=== PATIENT | female | born 1980 | race Caucasian/White ===

== ENCOUNTER 2022-10-20 08:55 | Outpatient (OUT) | payer OTHER, SELFPAY ==
--- NOTE | 2022-10-20 09:30 | XR_ITS ---
The [address] [address] Patient Name: SUREKHA EASLEY MRN: [id number] date: 1980 Sex: F Assigned Patient Location: [facility] Current Patient Location: [facility] Accession/Order Number: [id number] Exam Date: 10/20/2022 09:40 Report Date: 10/20/2022 11:05 At the request of: NAGA SCOTT Procedure: XR chest 2V EXAM: XR chest 2V HISTORY: E CIGARETTE USE COMPARISON: None. TECHNIQUE: PA and lateral views of the chest. FINDINGS: The cardiomediastinal silhouette is normal. No focal consolidation is identified. There is no pneumothorax. No pleural effusion is noted. The osseous structures are intact. XR/XR chest 2V IMPRESSION: No acute cardiopulmonary process. Electronically authenticated by: TASH CONNORS Date: 10/20/2022 11:05
--- NOTE | 2022-10-20 09:39 | PM.PRESUREVA ---
History of Present Illness History of Present Illness Chief complaint: cervical dysplasia Narrative: Patient presents for preadmission testing. Please see HPI from Dr. Kraft dated 10/04/2022. Review of Systems ROS Narrative REVIEW OF SYSTEMS: Negative except as stated in HPI, ten or more systems reviewed. Constitutional: No fever , chills, weakness ENT: No sore throat or epistaxis Cardiovascular: No edema, chest pain, palpitations, or activity intolerance Respiratory: No shortness of breath, cough, or wheezing Musculoskeletal: No joint pain or swelling Gastrointestinal: No abdominal pain, constipation, diarrhea, or vomiting Genitourinary: No dysuria or hematuria Neurological: No numbness, tingling, weakness, or headache Psychiatric: No mood changes PFSH PFSH Medical History (Updated 10/20/22 @ 09:28 by Milli Carrillo NP) Surgical History (Updated 10/20/22 @ 09:28 by Milli Carrillo NP) Family History (Updated 10/20/22 @ 09:28 by Milli Carrillo NP) Other Family history of COPD (chronic obstructive pulmonary disease) Family history of cervical cancer Family history of heart disease Family history of renal failure Social History (Updated 10/20/22 @ 09:21 by Milli Carrillo NP) Within the past year, how often did you have a drink containing alcohol: 2-4 times a month Do you use any of these nicotine containing products: vaping products Non-prescribed substance use: cannabis (any form) Previous occupational history: [employer] Highest level of school completed/degree received: high school graduate Meds Home Medications and Allergies Home Medications Medication Instructions Recorded Confirmed Type ibuprofen 400 mg tablet 800 mg PO TID-QID PRN pain 10/20/22 10/20/22 History levonorgestrel 20.4 mcg/24 hrs (8 intrauterine 10/20/22 History yrs) 52 mg intrauterine device (Liletta) promethazine 12.5 mg tablet 12.5 mg PO TID PRN nausea and 10/20/22 10/20/22 History vomiting sumatriptan succinate 50 mg tablet See Rx Instructions PO .COMPLEX 10/20/22 10/20/22 History (Imitrex) Allergies Allergy/AdvReac Type Severity Reaction Status Date / Time bee venom protein (honey bee) Allergy swelling Verified 10/20/22 09:18 latex Allergy Hives Verified 10/20/22 09:18 strawberry Allergy Rash Verified 10/20/22 09:18 Exam Narrative Exam Narrative: Constitutional: Awake, alert, comfortable, well-appearing, nontoxic, interactive, vital signs as charted Head: Normocephalic, atraumatic Neck: Supple, normal appearance, normal range of motion, no meningeal signs, no lymphadenopathy Respiratory: No respiratory distress, breath sounds clear Cardiovascular: Regular rate and rhythm, strong and regular heart tones Abdomen: Nontender, normal bowel sounds, soft, no CVA tenderness Musculoskeletal: Normal gait, no swelling or edema Skin: No rashes or induration, no lesions, only visible skin inspected Neuro: No neurological deficits, normal sensation Psychiatric: Oriented ?3, normal affect Assessment and Plan Assessment and Plan (1) Dysplasia of cervix: Plan LEEP Scheduled with Dr. Kraft 11/02/2022.
== END 2022-10-20 08:56 | disposition home or self-care (01) ==
LOC: PST 09:00
PROVIDERS: PCP Nurse Practitioner Family; Visit Provider Obstetrics & Gynecology
DX: Z01.818 Encounter for other preprocedural examination (principal); Z01.810 Encounter for preprocedural cardiovascular examination; N87.9 Dysplasia of cervix uteri, unspecified; F17.290 Nicotine dependence, other tobacco product, uncomplicated
CPT/HCPCS: 71046; G0463

== ENCOUNTER 2022-11-02 11:10 | Day surgery (SDC) | payer OTHER, SELFPAY ==
[2022-10-20 09:23] VITALS: BP 146/80; PULSE 89; RESP 20; TEMP 36.8; O2SAT 96; BMI 51.0
[2022-11-02] VITALS (12 sets, daily range): BP systolic 119–160; BP diastolic 79–104; PULSE 74–95; RESP 11–25; TEMP 36.5–37.1; O2SAT 93–100; BMI 50.7
[2022-11-02 11:38] LABS: HCG Quantitative 2 mIU/mL
[2022-11-02 11:40] LABS: Basophils Percent Auto 0.5 % (0.2-2.0); Eosinophils Absolute Auto 0.4 10^3/uL (0.0-0.7); Eosinophils Percent Auto 4.2 % (0.9-7.0); Hematocrit 40.8 % (36.0-48.0); Hemoglobin 13.7 g/dL (12.0-16.0); Immature Granulocytes Abs Auto 0.02 10^3/uL (0.00-0.03); Immature Granulocytes Pct Auto 0.2 % (0.0-0.5); Lymphocytes Absolute Auto 2.4 10^3/uL (1.2-3.8); Lymphocytes Percent Auto 27.6 % (20.5-60.0); Mean Corpuscular HGB Conc 33.6 g/dL (29.9-35.2); Mean Corpuscular Hemoglobin 28.9 pg (26.7-34.0); Mean Corpuscular Volume 86.1 fL (81.0-99.0); Mean Platelet Volume 8.7 fL (9.5-13.5); Monocytes Absolute Auto 0.7 10^3/uL (0.3-0.8); Monocytes Percent Auto 8.2 % (1.7-12.0); Neutrophils Absolute Auto 5.2 10^3/uL (1.4-6.5); Neutrophils Percent Auto 59.3 % (43.0-75.0); Platelet Count 474 10^3/uL (150-450); Red Blood Count 4.74 10^6/uL (4.20-5.40); Red Cell Distribution Width 13.3 % (11.0-15.0); White Blood Count 8.8 10^3/uL (4.0-11.0)
[2022-11-02] MEDS: LACTATED RINGER'S SOLUTION 1,000 ML 50 ML IV (11:41)
[2022-11-02] MEDS: FERRIC SUBSULFATE 8 ML SOLUTION TOPICAL (13:10)
[2022-11-02] MEDS: IODINE/POTASSIUM IODIDE 8 ML SOLUTION TOPICAL (13:11)
--- NOTE | 2022-11-02 13:28 | P.ON_ITS ---
Brief Operative Note Date of procedure: 11/02/22 Pre-op diagnosis: cervical dysplasia Post-op diagnosis: same Procedure: NAME OF PROCEDURE: [leep ] PROCEDURE: Patient was taken back to the Operating Room where she was given general ane sthesia without difficulty. She was then placed in the dorsal lithotomy position. She was then prepped and draped in the normal sterile fashion. A weighted speculum was placed into the patient's vagina. The anterior lip of the cervix was identified and grasped with a single-tooth tenaculum. The patient's cervix was then copiously irrigated using vinegar.? Then, a Lugol Solution was also placed onto the patient's cervix which demonstrated increased uptake of the Lugol solution at the [6? ] o?clock and [?10 ] o?clock positions.? At that time, the LEEP portion of the procedure was performed, including both the [?6 ] o?clock and [10 ] o?clock positions. The ectocervix was sent out to Pathology. The patient's cervix was then coagulated using suction cautery. Excellent hemostasis was assured.? Monsel Solution was then placed onto the patient's cervix to help maintain adequate hemostasis. All instruments were removed from the patient's vagina. The anterior lip of the cervix demonstrated excellent hemostasis.? The patient tolerated the procedure well. Sponge, lap, and needle counts were correct x 2. The patient was taken to Recovery Room in stable condition. Anesthesia: SYDNEYA Surgeon: Khanh Kraft Estimated blood loss (mL): 20 Pathology: other (ectocervical tissue) Condition: stable Disposition: PACU
--- NOTE | 2022-11-02 13:43 | PC.NURSE ---
Katey pad is clean , no drainage.
== END 2022-11-02 14:30 | disposition home or self-care (01) ==
PROVIDERS: PCP Nurse Practitioner Family; Visit Provider Obstetrics & Gynecology
PROC: (CPT 57522; principal; 2022-11-02 12:30)
DX: N87.9 Dysplasia of cervix uteri, unspecified (principal); N72 Inflammatory disease of cervix uteri; N88.0 Leukoplakia of cervix uteri; F17.290 Nicotine dependence, other tobacco product, uncomplicated; E66.01 Morbid (severe) obesity due to excess calories; Z68.43 Body mass index [BMI] 50.0-59.9, adult
CPT/HCPCS: 57522; 36415; 84702; 85025; 88307; J2704

== ENCOUNTER 2023-03-29 21:24 | Outpatient (REF) | payer OTHER, SELFPAY ==
[2023-04-05 14:10] LABS: Age Gdln ACOG Testing Note (.); HPV Aptima Negative (Negative); IGP, Aptima HPV, rfx 16/18,45 Note (.)
== END 2023-03-29 21:25 | disposition home or self-care (01) ==
LOC: LAB 21:24
PROVIDERS: PCP Nurse Practitioner Family; Visit Provider Obstetrics & Gynecology
DX: Z01.419 Encounter for gynecological examination (general) (routine) without abnormal findings (principal)
CPT/HCPCS: G0145

== ENCOUNTER 2023-10-03 19:44 | Outpatient (REF) | payer OTHER, SELFPAY ==
--- OUTSIDE RECORDS SUMMARY | 2023-10-03 19:50 | XMS_ITS | CCD ---
Author Organization [facility] Care Team Providers Care Medical Office Asst Name Role Phone Betty Huffman Unavailable [phone] Betty Huffman Primary Care Unavailable NAGA SCOTT Attending Unavailable Allergies Allergy Classification Reported Allergen(s) Allergy Type Date of Onset Reaction(s) Facility (1 source) Pollen; Translations: [Pollen] Propensity to adverse reactions (disorder) [facility] Repository Medications Current Medications Medication Drug Class(es) Dates Sig (Normalized) Sig (Original) acetaminophen 325 mg oral tablet (1 source) take 2 tablets by mouth every twenty-four hours Tylenol 325 MG 2 tablet as needed Orally once a day Active [id number] actuat albuterol 0.09 mg/actuat metered dose inhaler (2 sources) beta2-Adrenergic Agonist take 1 puff(s) by inhalation every four hours as needed Albuterol Sulfate HFA 108 (90 Base) MCG/ACT 1 puff as needed Inhalation every 4 hrs Active benzonatate 200 mg oral capsule (2 sources) Non-narcotic Antitussive Start: 02-01-2022 take 1 capsule by mouth three times daily as needed Benzonatate 200 MG 1 capsule Orally Three times a day as needed for 10 day(s) Jan, Active take 1 capsule by mouth every ei ght hours Tessalon Perles 100 MG 1 capsule as needed Orally Three times a day Active cyclobenzaprine hydrochloride 10 mg oral tablet (7 sources) Muscle Relaxant Start: 10-03-2023 take 10 mg by mouth three times daily Cyclobenzaprine Active 10 MG PO Three times daily 120 90 October 03, 2023 12:00am Start: 07-15-2019 take 0.5-1 tablets b y mouth three times daily as needed for muscle spasms Cyclobenzaprine HCl 10 MG 1/2 to 1tab Orally tid prn muscle spasm or strain for 10 days PRN Jul, Active doxycycline monohydrate 100 mg oral tablet (1 source) Tetracycline-class Drug Start: 02-01-2022 take 1 tablet by mouth every twelve hours Doxycycline Monohydrate 100 MG 1 tablet Orally Twice a day for 10 day(s) Jan, Active fexofenadine (2 sources) Histamine-1 Receptor Antagonist Brittnee Active Levonorgestrel (6 sources) Progestin, Progestin-containing Intrauterine Device Liletta Active Mirena Active methylPREDNISolone 4 mg oral tablet (2 sources) Corticosteroid Start: 02-01-2022 methylPREDNISo lone 4 MG as directed Orally daily for 6 days Jan, Active Start: 09-28-2020 methylPREDNISo lone 4 MG as directed Orally daily for 6 days Sep, Not-Taking promethazine hydrochloride 25 mg oral tablet (8 sources) Phenothiazine Start: 09-28-2023 take 25 mg by mouth every twelve hours Promethazine Active 25 MG PO Every 12 hours September 28, 2023 12:00am Start: 02-03-2021 take 1 tablet by christian th every twelve hours Promethazine HCl 25 MG 1 tablet as needed Orally every 12 hrs for 30 day(s) Jan, Active Start: 01-11-2018 Phenergan 25mg 25mg as directed by mouth bid Jan, Active rimegepant 75 mg disintegrating oral tablet (2 sources) Start: 09-28-2023 Rimegepant (Nu rtec Odt) 75 mg tablet,disintegrating Active 75 MG PO Every 48 hours September 28, 2023 12:00am Start: 02-13-2023 Nurtec 75 MG 1 tablet on the tongue and allow to dissolve Orally for 30 days Feb, Active Completed/Discontinued Medications Medication Drug Class(es) Dates Sig (Normalized) Sig (Original) ibuprofen 800 mg oral tablet (1 source) Nonsteroidal Anti-inflammatory Drug Start: 07-15-2019 take 1 tablet by mouth three times daily at mealtime as needed Ibuprofen 800 MG 1 tablet with food or milk as needed Orally Three times a day Jul, Not-Taking Ketorolac (5 sources) Nonsteroidal Anti-inflammatory Drug, Cyclooxygenase Inhibitor Start: 10-02-2019 Toradol per 15 mg Sep, 30 mg SUMAtriptan 50 mg oral tablet (7 sources) Serotonin-1b and Serotonin-1d Receptor Agonist Start: 09-28-2023 End: 10-03-2023 Sumatriptan Succinate Discontinued 50 MG PO EVERY 2-4 HOURS September 28, 2023 12:00am October 03, 2023 10:38am SUMAtriptan Succ inate 50 MG TAKE ONE TABLET BY MOUTH NEEDED REPEAT IN 2 HOURS NEEDED DAILY FOR 30 DAYS for 30 day(s) Active Problems Active Problems Problem Classification Problem Date Documented Da te Episodic/Chronic Chronic obstructive pulmonary disease and bronchiectasis (1 source) Bronchitis, not specified as acute or chronic Episodic Essential hypertension (9 sources) Essential hypertension; Translations: [Essential (primary) hypertension] Onset: 02-03-2021 Resolved: 02-03-2021 Chronic Headache; including migraine (9 sources) Migraine with aura; Translations: [Migraine with aura, not intractable, without status migrainosus] Onset: 02-03-2021 Resolved: 02-03-2021 Chronic Other nervous system disorders (6 sources) H/O: migraine; Translations: [Personal history of other diseases of the nervous system and sense organs] Episodic Other upper respiratory infections (1 source) Acute maxillary sinusitis, unspecified Episodic Spondylosis; intervertebral disc disorders; other back problems (10 sources) Acute back pain with sciatica; Translations: [Lumbago with sciatica, left side] Episodic Past or Other Problems Problem Classification Problem Date Documented Da te Episodic/Chronic Other non-traumatic joint disorders (1 source) Pain in left knee Onset: 09-23-2021 Resolved: 09-23-2021 Episodic Results Test Name Value Interpretation Reference Range Facility Consent Formson 02-07-2023 Consent Forms [id number] #[id number] Normal [facility] CMP Standardon 02-01-2023 eGFR Non AA >60 Invalid Interpretation Code [facility] Comment on above: Performed By: #### 2 [id number], [id number], 1648397, 3059116, 6295786, [id number], 4995398 #### [facility] (DEFAULT) [address] [place] [address] eGFR AA >60 Invalid Interpretation Code [facility] Comment on above: Performed By: #### 2 [id number], [id number], 2714104, 4352795, 0440548, [id number], 0105897 #### [facility] (DEFAULT) [address] [place] [address] Albumin [Mass/Vol] 4.0 g/dL Normal 3.5-5.0 [facility] Comment on above: Performed By: #### 2 044853, [id number], 5800812, 5812573, 6641131, 6331285661, 1698639 #### [facility] (DEFAULT) [address] [place] [address] Albumin/Globulin [Mass ratio] 1.2 {ratio} Low 1.4-2.6 [facility] Comment on above: Performed By: #### 2 302829, [id number], 1964032, 3872236, 1682599, [id number], 7650704 #### [facility] (DEFAULT) [address] [place] [address] 62548 Alk Phos 58 IU/L Normal 32-91 [facility] Comment on above: Performed By: #### 2 692160, [id number], 0271689, 6366184, 0769982, 2790407296, 7753912 #### [facility] (DEFAULT) [address] [place] [address] 32761 ALT [Catalytic activity/Vol] 51.0 U/L Normal 14.0-54.0 [facility] Comment on above: Performed By: #### 2 787426, [id number], 0642707, 0482148, 2465558, [id number], 1336286 #### [facility] (DEFAULT) [address] [place] [address] 70999 Anion gap [Moles/Vol] 9.6 mmol/L Normal 5.0-19.0 [facility] Comment on above: Performed By: #### 2 307369, [id number], 5611591, 5149015, 8133954, [id number], 5459852 #### [facility] (DEFAULT) [address] [place] [address] 59741 AST [Catalytic activity/Vol] 27 U/L Normal 15-41 [facility] Comment on above: Performed By: #### 2 136551, [id number], 2947096, 5029546, 7173652, 6874669010, 5033602 #### [facility] (DEFAULT) [address] [place] [address] 89617 Bili Total 0.5 mg/dL Normal 0.3-1.2 [facility] Comment on above: Performed By: #### 2 479703, [id number], 8493503, 3966289, 8827065, 8584415152, 3233831 #### [facility] (DEFAULT) [address] [place] [address] 83039 Calcium [Mass/Vol] 8.6 mg/dL Low 8.9-10.3 [facility] Comment on above: Performed By: #### 2 139765, [id number], 0140541, 9623740, 0880347, 9919710896, 1836221 #### [facility] (DEFAULT) [address] [place] [address] 75833 Chloride [Moles/Vol] 102 mmol/L Normal 101-111 [facility] Comment on above: Performed By: #### 2 300882, [id number], 5781912, 7534514, 4988482, 7344942363, 7191953 #### [facility] (DEFAULT) [address] [place] [address] 93859 CO2 [Moles/Vol] 28 mmol/L Normal 21-32 [facility] Comment on above: Performed By: #### 2 985315, [id number], 4528327, 1546084, 6011281, 1074995277, 1286201 #### [facility] (DEFAULT) [address] [place] [address] 90176 Creatinine [Mass/Vol] 0.57 mg/dL Low 0.60-1.30 [facility] Comment on above: Performed By: #### 2 809266, 7375168889, 5785032, 1266992, 7506592, 7073803972, 3353139 #### [facility] (DEFAULT) [address] [place] [address] 60717 Globulin (S) [Mass/Vol] 3.2 g/dL Normal 1.5-4.3 [facility] Comment on above: Performed By: #### 2 578806, 5190615471, 5802557, 4445018, 6707773, 3194261865, 5731543 #### [facility] (DEFAULT) [address] [place] [address] 44460 Glucose [Mass/Vol] 87.0 mg/dL Normal 74.0-118.0 [facility] Comment on above: Performed By: #### 2 231406, 1363521698, 5744456, 1255457, 6364798, 0547054445, 1630881 #### [facility] (DEFAULT) [address] [place] [address] 40086 Osmolality 271 mOsm/L Invalid Interpretation Code [facility] Comment on above: Performed By: #### 2 255623, [id number], 0941796, 6126204, 6446443, 7627791613, 6896055 #### [facility] (DEFAULT) [address] [place] [address] 42578 Potassium [Moles/Vol] 3.6 mmol/L Normal 3.6-5.1 [facility] Comment on above: Performed By: #### 2 108593, 9024223073, 1342404, 2105989, 5141829, 6564653035, 6547710 #### [facility] (DEFAULT) [address] [place] [address] 60300 Protein [Mass/Vol] 7.2 g/dL Normal 6.5-8.1 [facility] Comment on above: Performed By: #### 2 602447, [id number], 9826171, 9314140, 1780601, 6971406862, 4255556 #### [facility] (DEFAULT) [address] [place] [address] 15946 Sodium [Moles/Vol] 136.0 mmol/L Normal 136.0-144.0 [facility] Comment on above: Performed By: #### 2 543084, 9830056433, 5855161, 4561505, 2494747, 1398381880, 2157165 #### [facility] (DEFAULT) [address] [place] [address] 28581 Urea nitrogen [Mass/Vol] 11 mg/dL Normal 8-26 [facility] Comment on above: Performed By: #### 2 805338, 4797962797, 5021719, 7702238, 2682846, 8176194777, 0396330 #### [facility] (DEFAULT) [address] [place] [address] 10775 Urea nitrogen/Creatini ne [Mass ratio] 19.2 mg/mg High 4.6-16.2 [facility] Comment on above: Performed By: #### 2 126292, 3688551525, 4635515, 3308016, 6779739, 0060194849, 0482900 #### [facility] (DEFAULT) [address] [place] [address] 72318 GGTon 02-01-2023 Gamma glutamyl transferase [Catalytic activity/Vol] 39.0 U/L Normal 7.0-50.0 [facility] Comment on above: Performed By: #### 2 724500, 2858131596, 9419424, 9498481, 8665009, 8398317361, 4374963 #### [facility] (DEFAULT) [address] [place] [address] 46154 Iron Levelon 02-01-2023 Iron [Mass/Vol] 75.0 ug/dL Normal 28.0-170.0 [facility] Comment on above: Performed By: #### 2 825063, [id number], 9243402, 4058408, 6115165, 9773919242, 0620522 #### [facility] (DEFAULT) [address] [place] [address] 16534 LDHon 02-01-2023 LDH 149.0 IU/L Normal 98.0-192.0 [facility] Comment on above: Performed By: #### 2 048137, [id number], 1283491, 5982211, 6658827, 7158303891, 5361790 #### [facility] (DEFAULT) [address] [place] [address] 45094 Lipid Panel Standardon 02-01 Cholesterol [Mass/Vol] 152.0 mg/dL Normal 66.0-200.0 [facility] Comment on above: Performed By: #### 2 005904, [id number], 8452360, 8797147, 3064256, 3125999261, 4730852 #### [facility] (DEFAULT) [address] [place] [address] 40950 Cholesterol in HDL [Mass/Vol] 46 mg/dL Normal 40-71 [facility] Comment on above: Performed By: #### 2 609257, 7782810363, 5911585, 3969994, 9024598, 2956995078, 8720850 #### [facility] (DEFAULT) [address] [place] [address] 31556 Cholesterol in LDL [Mass/Vol] 92 mg/dL Normal 1-100 [facility] Comment on above: Performed By: #### 2 285992, 9621712378, 2916726, 5732652, 2592678, 5182176309, 3027404 #### [facility] (DEFAULT) [address] [place] [address] 73005 Cholesterol.total /Cholesterol in HDL [Mass ratio] 3.2 {ratio} Normal 0.0-4.5 [facility] Comment on above: Performed By: #### 2 888267, 7010559925, 9870607, 2268347, 5294491, 6362786868, 8942812 #### [facility] (DEFAULT) [address] [place] [address] 26215 Triglyceride [Mass/Vol] 70.0 mg/dL Normal 0.0-150.0 [facility] Comment on above: Performed By: #### 2 927617, [id number], 3843561, 5883842, 1103250, 2959458929, 1502320 #### [facility] (DEFAULT) [address] [place] [address] 52408 VLDL. 14 mg/dL Normal 5-40 [facility] Comment on above: Performed By: #### 2 784350, 6177091250, 7627497, 0866902, 3012225, 2676183260, 9544838 #### [facility] (DEFAULT) [address] [place] [address] 88818 Phoson 02-01-2023 Phosphate [Mass/Vol] 3.8 mg/dL Normal 2.5-4.6 [facility] Comment on above: Performed By: #### 2 095219, [id number], 6561387, 8884580, 9755096, 4960157772, 4572860 #### [facility] (DEFAULT) [address] [place] [address] 35015 Uric Acidon 02-01-2023 Urate [Mass/Vol] 5.0 mg/dL Normal 2.6-8.0 [facility] Comment on above: Performed By: #### 2 964260, [id number], 2483613, 3158459, 8014310, 3285092605, 9079143 #### [facility] (DEFAULT) [address] [place] [address] 25424 SCREENING MAMMOGRAM W/FUAD, BILATERAL*on 02-14-2022 SCREENING MAMMOGRAM W/FUAD, BILATERAL* COMPARISON: Initial baseline examination. TECHNIQUE: 2D and 3D Tomosynthesis of the right and left breasts was performed. FINDINGS: Breast composition demonstrates almost entirely fat. No suspicious microcalcifications, dominant mass lesions, or distortion is present. IMPRESSION: BI-RADS 1- Negative Mammogram Board Certified Radiologist. Accredited by the ACR and FDA. MAMMOGRAPHY IS VERY IMPORTANT TO YOUR HEALTH. THE CURRENT [employer] AND [employer] GUIDELINES RECOMMENDS ANNUAL MAMMOGRAPHY BEGINNING AT AGE 40 THIS FACILITY USES A REMINDER SYSTEM TO ENSURE ALL PATIENTS RECEIVE REMINDER NOTIFICATIONS AT THE APPROPRIATE TIME BASED ON THE RECOMMENDATIONS OF THIS EXAM. Report reported and signed by Cedric North on 02/15/2022 0805 Normal [facility] Vital Signs Date Time Vital Sign Value Performing Clinician Facility 10-03-2023 10:31-0400 Body height 163.83 cm [facility] 10-03-2023 10:31-0400 Body mass index (BMI) [Ratio] 51.2 kg/m2 [facility] 10-03-2023 10:31-0400 Body weight 137.43 kg [facility] 10-03-2023 10:31-0400 Diastolic blood pressure 88 mm[Hg] [facility] 10-03-2023 10:31-0400 Heart rate 75 /min [facility] 10-03-2023 10:31-0400 SaO2% (BldA) [Mass fraction] 99 % [facility] 10-03-2023 10:31-0400 Systolic blood pressure 132 mm[Hg] [facility] 02-13-2023 11:00-0500 Body height 163.83 cm Betty Huffman Other [facility] Other 02-13-2023 11:00-0500 Body mass index (BMI) [Ratio] 50.53 kg/m2 Betty Huffman Other [facility] Other 02-13-2023 11:00-0500 Body weight 135.63 kg Betty Huffman Other [facility] Other 02-13-2023 11:00-0500 Diastolic blood pressure 88 mm[Hg] Betty Huffman Other [facility] Other 02-13-2023 11:00-0500 SaO2% (BldA) [Mass fraction] 99 % Betty Huffman Other [facility] Other 02-13-2023 11:00-0500 Systolic blood pressure 134 mm[Hg] Betty Huffman Other [facility] Other 02-01-2022 14:30-0400 Body height Betty Huffman Other [facility] Other 02-01-2022 14:30-0400 Body mass index (BMI) [Ratio] 51.2 kg/m2 Betty Lukedaynasilas Other [facility] Other 02-01-2022 14:30-0400 Body weight 137.44 kg Betty Cassidyacher Other [facility] Other 02-01-2022 14:30-0400 Diastolic blood pressure 100 mm[Hg] Betty Hinesr Other [facility] Other 02-01-2022 14:30-0400 SaO2% (BldA) [Mass fraction] 98 % Betty Lukedaynaalanajamey Other [facility] Other 02-01-2022 14:30-0400 Systolic blood pressure 142 mm[Hg] Betty Cassidyacher Other [facility] Other 01-26-2022 14:30-0400 Body height Betty Hinesr Other [facility] Other 01-26-2022 14:30-0400 Body mass index (BMI) [Ratio] 51.2 kg/m2 Betty Khanhacher Other [facility] Other 01-26-2022 14:30-0400 Body weight 137.44 kg Betty Lukedaynaacher Other [facility] Other 01-26-2022 14:30-0400 Diastolic blood pressure 98 mm[Hg] Betty Cassidyacher Other [facility] Other 01-26-2022 14:30-0400 SaO2% (BldA) [Mass fraction] 96 % Betty Lukedaynaacher Other [facility] Other 01-26-2022 14:30-0400 Systolic blood pressure 164 mm[Hg] Betty uLkerbacher Other [facility] Other 09-23-2021 11:00-0400 Body height Betty Cassidyacher Other [facility] Other 09-23-2021 11:00-0400 Body mass index (BMI) [Ratio] 50.19 kg/m2 Betty Cassidyacher Other [facility] Other 09-23-2021 11:00-0400 Body weight 134.72 kg Betty Lukedaynaacher Other [facility] Other 09-23-2021 11:00-0400 Diastolic blood pressure 86 mm[Hg] Betty Lukerbacher Other [facility] Other 09-23-2021 11:00-0400 SaO2% (BldA) [Mass fraction] 97 % Betty Khanhacher Other [facility] Other 09-23-2021 11:00-0400 Systolic blood pressure 126 mm[Hg] Betty Cassidyacher Other [facility] Other 02-03-2021 12:00-0400 Body height Betty Cassidyacher Other [facility] Other 02-03-2021 12:00-0400 Body mass index (BMI) [Ratio] 48.67 kg/m2 Betty Rohrbacher Other [facility] Other 02-03-2021 12:00-0400 Body weight 130.64 kg Betty Nathanael Other [facility] Other 02-03-2021 12:00-0400 Diastolic blood pressure 110 mm[Hg] Betty Nathanael Other [facility] Other 02-03-2021 12:00-0400 Respiratory rate 18 /min Betty Nathanael Other [facility] Other 02-03-2021 12:00-0400 SaO2% (BldA) [Mass fraction] 96 % Betty Nathanael Other [facility] Other 02-03-2021 12:00-0400 Systolic blood pressure 169 mm[Hg] Betty Nathanael Other [facility] Other Encounters Encounter Date Encounter Type Care Provider Facility Start: 10-03-2023 End: 10-03-2023 ambulatory [facility] Work Phone: Start: 10-03-2023 End: 10-03-2023 Patient encounter procedure [facility] Work Phone: Start: 03-29-2023 End: 03-29-2023 ambulatory NAGA SONIA Not Available Start: 02-13-2023 End: 02-13-2023 ambulatory Betty Huffman Other [facility] Other Start: 02-13-2023 Encounter for genera l adult medical examination without abnormal findings Betty Huffman [facility] Start: 02-13-2023 Periodic preventive med est patient 40-64yrs Betty Huffman [facility] Start: 02-01-2023 End: 02-02-2023 ambulatory Betty Huffman Facility:[facility] Start: 02-01-2022 End: 02-01-2022 ambulatory Betty Nathanael Other [facility] Other Start: 02-01-2022 Office outpatient vi sit 25 minutes Betty Huffman [facility] Start: 01-26-2022 End: 01-26-2022 ambulatory Betty Huffman Other [facility] Other Start: 01-26-2022 Encounter for genera l adult medical examination without abnormal findings Betty Huffman [facility] Start: 01-26-2022 Periodic preventive med est patient 40-64yrs Betty Huffman [facility] Start: 09-27-2021 End: 09-27-2021 ambulatory Betty Huffman Other [facility] Other Start: 09-27-2021 Telephone encounter Betty ferguson [facility] Start: 09-23-2021 End: 09-23-2021 ambulatory Betty Huffman Other [facility] Other Start: 09-23-2021 Office outpatient vi sit 15 minutes Betty Huffman [facility] Start: 02-03-2021 Encounter for genera l adult medical examination without abnormal findings Betty Huffman [facility] Start: 02-03-2021 Periodic preventive med est patient 40-64yrs Betty Huffman [facility] Immunizations Immunization Date Immunization Notes Care Provider Brooklynn moore 01-14-2022 influenza, seasonal, injectable Betty Huffman Other [facility] 02-03-2020 influenza, seasonal, injectable Patient Objection Betty Huffman Other [facility] Other 10-02-2019 Toradol per 15 mg Betty Nathanael Other [facility] Other 01-10-2018 influenza, seasonal, injectable Betty Nathanael Other [facility] NEGATED: Highlighted row has not occurred! 0 influenza, seasonal, injectable Patient Objection Betty Nathanael Other [facility] Other Payers Date Payer Category Payer Unknown [id number] 1980 Unknown [id number] Private Health Insurance [employer] [facility] [id number] Self-pay Self Pay [id number] Social History Date Type Detail Facility Unknown if ever smoked [facility] Other Sex Assigned At Sex Assigned At Bir th [facility] Other Start: 10-03-2023 Tobacco smoking status NHIS Never smoked tobacco (finding) [facility] Start: 1980 Sex Assigned At Female F [facility] Evaluation note 02-13-2023 Note Date & Type Note Facility 02-13-2023 Evaluation note Encounter Date Diagnosis Assessment Notes Feb, Wellness examination (ICD-10 - Z00.00) Personalized health advice was given to the beneficiary including a written plan for screenings discussed and provided. Additional counseling was provided here today in regards to general topics regarding health education were discussed in detail. Additional counseling was provided here today in regards to general topics regarding health education were discussed in detail.All preventative issues were discussed including remaining a nonsmoker, colorectal screening, the importance of proper sleep for brain health maintenance, maintaining a heart-healthy balanced diet, recognizing and addressing signs of anxiety and depression, maintaining positive relationships with family and friends. Feb, Migraine with aura and without status migrainosus, not intractable (ICD-10 - G43.109) Migraine symptoms remain unchanged. She is to continue to monitor migraines and take note of any change in pattern or nature of the headaches. If she were to develop the worst headache of his life she should seek care. With onset of headache she is to take the medication and not wait around. SHe may also continue to use Excedrin as needed. GUALBERTO paperwork compelted to uses as needed for her migraines. Feb, Essential hypertension (ICD-10 - I10) To goal. NOt currenlty on any medication for blood pressure Patient to call the office with blood pressure readings and will start on medication if continue to be elevated. Patient verbalizes understanding and is agreeable. Patient is advised to work on healthy diet choices and appropriate servings, weight control, regular exercise as directed, reduced fat intake, and salt avoidance. Patient voiced understanding of this and agrees to this plan. Feb, Right sided sciatica (ICD-10 - M54.31) Clinical presentation is consistent with back pain with sciatica. Rx sent, take as directed. Recommended ice/warm compresses to affected area as directed. Rest. Stretches as tolerated. Salonpas as needed to the area of pain Advance activity as tolerated. Immediate eval if warning s/s of intractable pain, fevers, loss of motor or sensory function, bowel or bladder incontinence. F/u in 1 week or sooner if new/worsening symptoms despite tx. Pt verbalizes understanding and agrees with tx plan. Pt ambulated out by self. [facility] Other History general Narrative - Reported 11-08-2022 Note Date & Type Note Facility 11-08-2022 History general N arrative - Reported Type Medical History Hx of depression/anxiety Medical History Migraines Medical History COVID 11/2022 Surgical History Breast reduction 2006 Surgical History Tonsilectomy ? Surgical History Leep procedure 11/02/22 Hospitalization History see above [facility] Other Evaluation note 02-01-2022 Note Date & Type Note Facility 02-01-2022 Evaluation note Encounter Date Diagnosis Assessment Notes Jan, Bronchitis (ICD-10 - J40) Pt is acutely sick with acute complicated bronchitis and sinusitis. Recommend: Antibiotics: Doxycycline. Continue for Cough: Benzonatate Bronchodilator: Albuterol with prednisone taper and can use expectorent: Mucinex. Take medication as prescribed. Complete all doses of medication, even if sx are no longer present. Pt instructed to take medication with food. Informed pt that medication may make pt feel jittery, hungry and give you extra energy. Medication may also increase blood pressure and increase blood sugar. Pt also advised not to take NSAIDs while using steroids. [id number] antipyretics as needed. Warning signs and symptoms reviewed with patient today. Patient to go immediately to the ER should she experience any of these. Patient to notify office should her symptoms persist and not improve. Patient verbalizes understanding and agrees to treatment plan. Jan, Acute non-recurrent maxillary sinusitis (ICD-10 - J01.00) Will tx tody for bacterial sinusitis based on physical exam and duration of symptoms. Take antibiotic as prescribed, complete entire course of therapy even if symptoms resolve. Advised may cause diarrhea - advised to use OTC Probiotics, or eat 2 Activia yogurt per day to help maintain normal GI evette Supportive care as directed, push fluids and rest, Tylenol/Motrin as directed for aches/fever, warm moist compress over sinuses several times a day, cool mist humidifier, nasal saline spray as directed. Symptoms should improve in the next 3 days, if symptoms persist follow up. Immediate eval for warning s/sx as discussed. Patient verbalizes understanding and is agreeable to treatment plan. [facility] Other Evaluation note 01-26-2022 Note Date & Type Note Facility 01-26-2022 Evaluation note Encounter Date Diagnosis Assessment Notes Jan, Wellness examination (ICD-10 - Z00.00) Wellness performed today. Height, weight, BMI, and immunization records reviewed. Encouraged regular periods of exercise. Encouraged to eat a diet rich in plant-based floods and lean protein. Limit junk food and sources of excess calories. Jan, Migraine with aura and without status migrainosus, not intractable (ICD-10 - G43.109) Migraine symptoms remain unchanged. SHe is to continue to monitor migraines and take note of any change in pattern or nature of the headaches. If she were to develop the worst headache of his life she should seek care. With onset of headache she is to take the medication and not wait around. SHe may also continue to use Excedrin as needed. GUALBERTO paperwork compelted to uses as needed for her migraines. Jan, Essential hypertension (ICD-10 - I10) Elevated BP reading in office today, with hx of HTN but has not been on medicaiton.. Discussed seriousness of elevated BP and importance of having BP well managed. Advised patient to monitor BP at home and watch for warning s/sx as discussed, including, but not limited to, BP >180s/>100s, CP, palpitations, SOB, severe headache, N/V, lightheadedness, vision changes, facial drooping, weakness, numbness, tingling, speech or balance issues, severe back or abdominal pain, or any other concerning symptoms, go to ER immediately if occur. Patient to call the office with blood pressure readings and will start on medication if continue to be elevated. Patient verbalizes understanding and is agreeable. Patient is advised to work on healthy diet choices and appropriate servings, weight control, regular exercise as directed, reduced fat intake, and salt avoidance. Patient voiced understanding of this and agrees to this plan. [facility] Other Evaluation note 09-23-2021 Note Date & Type Note Facility 09-23-2021 Evaluation note Encounter Date Diagnosis Assessment Notes Sep, Acute pain of left knee (ICD-10 - M25.562) Discussed that this is most likely a strain/sprain of the knee. Declines x-ray today. Use GRADY wrap to support the knee, do not wear to bed though as it can cause more joint stiffness. Continue Ibuprofen over the counter. Use Ice 20 min on at a time, make sure there is something between the ice and your skin to prevent castle bite. Elevate the knee. Gentle stretches to the involved area, and slowly return to normal functional activity. Follow-up if continues to have worsening pain or any changes. Call if symptoms are worsening and will order a x-ray. Sprain/strain can take up to 4-6 weeks to heal. Pt verbalizes understanding and agrees to plan of care. [facility] Other Evaluation note 02-03-2021 Note Date & Type Note Facility 02-03-2021 Evaluation note Encounter Date Diagnosis Assessment Notes Jan, Migraine with aura and without status migrainosus, not intractable (ICD-10 - G43.109) Migraine symptoms remain unchanged. SHe is to continue to monitor migraines and take note of any change in pattern or nature of the headaches. If she were to develop the worst headache of his life she should seek care. With onset of headache she is to take the medication and not wait around. SHe may also continue to use Excedrin as needed. GUALBERTO paperwork compelted to uses as needed for her migraines. Jan, Wellness examination (ICD-10 - Z00.00) Wellness performed today. Height, weight, BMI, and immunization records reviewed. Encouraged regular periods of exercise, limiting screen time to 2 hours per day. Encouraged to eat a diet rich in plant-based foods and lean protein. Limit junk food and sources of excess calories. Jan, Essential hypertension (ICD-10 - I10) Elevated BP reading in office today, with hx of HTN but has not been on medicaiton.. Discussed seriousness of elevated BP and importance of having BP well managed. Advised patient to monitor BP at home and watch for warning s/sx as discussed, including, but not limited to, BP >180s/>100s, CP, palpitations, SOB, severe headache, N/V, lightheadedness, vision changes, facial drooping, weakness, numbness, tingling, speech or balance issues, severe back or abdominal pain, or any other concerning symptoms, go to ER immediately if occur. Patient to call the office with blood pressure readings and will start on medication if continue to be elevated. Patient verbalizes understanding and is agreeable. [facility] Other Evaluation note Note Date & Type Note Facility Evaluation note No Information Definition 6 Other Evaluation note Note Date & Type Note Facility Evaluation note Diagnosis Onset Date Sciatica of right side [facility] Work Phone: History general Narrative - Reported Note Date & Type Note Facility History general Narrative - Reported Type Medical History Hx of depression/anxiety Medical History Migraines Surgical History Breast reduction 2006 Surgical History Tonsilectomy ? Hospitalization History see above [facility] Other Summary Purpose Family History No Family History Records FoundNo Family History Records FoundNo Family History Records Found Advance Directives Advance Directive Response Recorded Date/ Time Advance Directives No January 24, 2018 1:10pm Chief Complaint and Reason for Visit Chief Complaint fmla, talk about med ication Reason for Visit Sciatica of right si de Additional Source Comments REASON FOR VISIT (unrecogniz ed section and content) WellnessNo Informationknee i ssuesWellness visitsevere cough with chest/rib painAnnual INFORMATION SOURCE (unrecogn ized section and content) DATE CREATED AUTHOR 02/15/2022 [facility] Specialist DATE CREATED AUTHOR AUTHOR'S ORGANIZ ATION 02/08/2023 [facility] DATE CREATED AUTHOR AUTHOR'S ORGANIZ ATION 03/30/2023 [facility] d[facility] Specialists EPIC Care Teams (unrecognized sec tion and content) Team Status: Active Member Role Status Dates Betty Huffman APRN NP-C Primary Care Provider Active Team Status: Inactive Member Role Status Dates Betty Huffman APRN NP-[place] Primary Care Provider, Attending Provider Active Start: October 03, 2023 End: October 03, 2023 Goals (unrecognized section and content) Goals may be documented in a n alternate section FOR RECORDS PERTAINING TO PATIENTS WHO ARE OR HAVE BEEN ENROLLED IN A CHEMICAL DEPENDENCY/SUBSTANCEABUSE PROGRAM, SOME INFORMATION MAY BE OMITTED. This clinical summary was aggregated from multiple sources. Caution should be exercised in using it in the provision of clinical care. This summary normalizes information from multiple sources, and as a consequence, information in this document may materially change the coding, format and clinical context of patient data. In addition, data may be omitted in some cases. CLINICAL DECISIONS SHOULD BE BASED ON THE PRIMARY CLINICAL RECORDS. [email or web address] provides no warranty or guarantee of the accuracy or completeness of information in this document.
== END 2023-10-03 19:45 | disposition home or self-care (01) ==
LOC: LAB 19:44
PROVIDERS: PCP Nurse Practitioner Family; Visit Provider Obstetrics & Gynecology
DX: Z01.42 Encounter for cervical smear to confirm findings of recent normal smear following initial abnormal smear (principal)
CPT/HCPCS: 87624; 88175

== ENCOUNTER 2024-01-22 20:23 | Outpatient (REF) | payer OTHER, SELFPAY ==
--- OUTSIDE RECORDS SUMMARY | 2024-01-22 20:30 | XMS_ITS | CCD ---
Author Organization [facility] Inform ion Partnership [facility] Care Team Providers Care Production Ski Repairer Name Role Phone Betty Huffman Unavailable NAGA SCOTT Attending Unavailable NAGA SCOTT Attending Unavailable Betty Huffman Primary Care Unavailable Betty Huffman Primary Care Unavailable Allergies Allergy Classification Reported Allergen(s) Allergy Type Date of Onset Reaction(s) Facility (1 source) Pollen; Translations: [Pollen] Propensity to adverse reactions (disorder) [facility] Repository Medications Current Medications Medication Drug Class(es) Dates Sig (Normalized) Sig (Original) acetaminophen 325 mg oral tablet (1 source) take 2 tablets by mouth every twenty-four hours Tylenol 325 MG 2 tablet as needed Orally once a day Active [id number] 200 actuat albuterol 0.09 mg/actuat metered dose [...] Value Interpretation Reference Range Facility Consent Formson 01-19-2024 Consent Forms [id number] #1.00OTGTIFF Normal [facility] CMP Standardon 01-03-2024 eGFR Non AA >60 Invalid Interpretation Code [facility] Comment on above: Performed By: #### 2 258060, 2484266, 6694363, 8546985, 3481360, [id number], [id number] #### [facility] (DEFAULT) [address] [place] [address] eGFR AA >60 Invalid Interpretation Code [facility] Comment on above: Performed By: #### 2 880354, 6175692, 8360874, 2657340, 3707138, 7196687707, 8598407767 #### [facility] (DEFAULT) [address] [place] [address] Albumin [Mass/Vol] 4.2 g/dL Normal 3.5-5.0 [facility] Comment on above: Performed By: #### 2 410231, 6684399, 6869486, 0130918, 6120495, 1418932215, 1657952310 #### [facility] (DEFAULT) [address] [place] [address] Alk Phos 62 IU/L Normal 32-91 [facility] Comment on above: Performed By: #### 2 024636, 0026534, 7182736, 5106752, 8617508, 0495636614, 6931207167 #### [facility] (DEFAULT) [address] [place] [address] ALT [Catalytic activity/Vol] 83.0 U/L High 14.0-54.0 [facility] Comment on above: Performed By: #### 2 441404, 2439355, 9692255, 8276189, 0139385, 7226846134, 5556417196 #### [facility] (DEFAULT) [address] [place] [address] AST [Catalytic activity/Vol] 37 U/L Normal 15-41 [facility] Comment on above: Performed By: #### 2 436457, 2131410, 9749404, 3168307, 2923599, 5088717955, 7978931413 #### [facility] (DEFAULT) [address] [place] [address] Bili Total 0.6 mg/dL Normal 0.3-1.2 [facility] Comment on above: Performed By: #### 2 241810, 5327912, 6337410, 8379257, 0261198, 6384016764, 9146354808 #### [facility] (DEFAULT) [address] [place] [address] 01720 Calcium [Mass/Vol] 8.5 mg/dL Low 8.9-10.3 [facility] Comment on above: Performed By: #### 2 880322, 6347948, 9204971, 1217839, 7864258, 5993150680, 1339468768 #### [facility] (DEFAULT) [address] [place] [address] 68736 Chloride [Moles/Vol] 102 mmol/L Normal 101-111 [facility] Comment on above: Performed By: #### 2 145521, 9954790, 5662010, 8531404, 6079995, 8049656499, 3213996442 #### [facility] (DEFAULT) [address] [place] [address] 09743 CO2 [Moles/Vol] 28 mmol/L Normal 21-32 [facility] Comment on above: Performed By: #### 2 853331, 1567289, 0731884, 2719750, 8991481, 9535002719, 5996846476 #### [facility] (DEFAULT) [address] [place] [address] 95802 Creatinine [Mass/Vol] 0.55 mg/dL Low 0.60-1.30 [facility] Comment on above: Performed By: #### 2 309964, 3721003, 2742821, 8380339, 2592043, 8041924105, 8555358681 #### [facility] (DEFAULT) [address] [place] [address] 37609 Glucose [Mass/Vol] 84.0 mg/dL Normal 74.0-118.0 [facility] Comment on above: Performed By: #### 2 930546, 6534533, 4147894, 6985439, 1564153, 8562541839, 0853655489 #### [facility] (DEFAULT) [address] [place] [address] 93497 Potassium [Moles/Vol] 3.9 mmol/L Normal 3.6-5.1 [facility] Comment on above: Performed By: #### 2 738219, 4637621, 8369741, 4914651, 5547164, 8414510047, 2158463387 #### [facility] (DEFAULT) [address] [place] [address] 30213 Protein [Mass/Vol] 7.1 g/dL Normal 6.5-8.1 [facility] Comment on above: Performed By: #### 2 944353, 7722048, 8733751, 9075752, 4857764, 1177636935, 2399459030 #### [facility] (DEFAULT) [address] [place] [address] 77674 Sodium [Moles/Vol] 137.0 mmol/L Normal 136.0-144.0 [facility] Comment on above: Performed By: #### 2 644848, 1437423, 2556731, 3719203, 8944522, 9172604507, 3885602674 #### [facility] (DEFAULT) [address] [place] [address] 61098 Urea nitrogen [Mass/Vol] 11 mg/dL Normal 8-26 [facility] Comment on above: Performed By: #### 2 250065, 3232697, 8183970, 8931329, 5518341, 3988140274, 4002689408 #### [facility] (DEFAULT) [address] [place] [address] 12348 Albumin/Globulin [Mass ratio] 1.4 {ratio} Normal 1.4-2.6 [facility] Comment on above: Performed By: #### 2 301448, 2364072, 7425108, 2673332, 1775470, 2774003464, 2009857029 #### [facility] (DEFAULT) [address] [place] [address] 69886 Anion gap [Moles/Vol] 10.9 mmol/L Normal 5.0-19.0 [facility] Comment on above: Performed By: #### 2 359832, 4332979, 8199016, 8622402, 3360703, 0664488223, 5864370528 #### [facility] (DEFAULT) [address] [place] [address] 12914 Globulin (S) [Mass/Vol] 2.9 g/dL Normal 1.5-4.3 [facility] Comment on above: Performed By: #### 2 823995, 9962661, 7069043, 2795622, 7412347, 4662677176, 1996316394 #### [facility] (DEFAULT) [address] [place] [address] Osmolality 272 mOsm/L Invalid Interpretation Code [facility] Comment on above: Performed By: #### 2 716076, 8308925, 0804565, 8026092, 6723653, 9962909588, 8524758728 #### [facility] (DEFAULT) [address] [place] [address] Urea nitrogen/Creatini ne [Mass ratio] 20.0 mg/mg High 4.6-16.2 [facility] Comment on above: Performed By: #### 2 482334, 4335137, 7471350, 8206048, 7660816, 1613029019, 7263163956 #### [facility] (DEFAULT) [address] [place] [address] 23090 GGTon 01-03-2024 Gamma glutamyl transferase [Catalytic activity/Vol] 53.0 U/L High 7.0-50.0 [facility] Comment on above: Performed By: #### 2 988437, 5979328, 6543643, 6453966, 9296698, 9173013385, 7310095903 #### [facility] (DEFAULT) [address] [place] [address] 80717 Iron Levelon 01-03-2024 Iron [Mass/Vol] 77.0 ug/dL Normal 28.0-170.0 [facility] Comment on above: Performed By: #### 2 367435, 5879856, 3789193, 7131836, 5687211, 6400851555, 4481652278 #### [facility] (DEFAULT) [address] [place] [address] 45181 LDHon 01-03-2024 LDH 174.0 IU/L Normal 98.0-192.0 [facility] Comment on above: Performed By: #### 2 273741, 0953867, 0843191, 5691942, 6523290, 6583519789, 5449582141 #### [facility] (DEFAULT) [address] [place] [address] 65675 Lipid Panel Standardon 01-02 Cholesterol [Mass/Vol] 153.0 mg/dL Normal 66.0-200.0 [facility] Comment on above: Performed By: #### 2 232781, 7584340, 4812658, 7394064, 7008847, 8264734485, 5312426472 #### [facility] (DEFAULT) [address] [place] [address] 57130 Cholesterol in HDL [Mass/Vol] 42 mg/dL Normal 40-71 [facility] Comment on above: Performed By: #### 2 391607, 2177372, 0256593, 1199614, 0720116, 4092495562, 6212609983 #### [facility] (DEFAULT) [address] [place] [address] 73578 Triglyceride [Mass/Vol] 78.0 mg/dL Normal 0.0-150.0 [facility] Comment on above: Performed By: #### 2 589090, 2130763, 1854947, 4601707, 2362693, 5086565990, 1174293381 #### [facility] (DEFAULT) [address] [place] [address] 60836 Cholesterol in LDL [Mass/Vol] 95 mg/dL Normal 1-100 [facility] Comment on above: Performed By: #### 2 025308, 6408417, 8448947, 0049917, 9254769, 5365873073, 8566161242 #### [facility] (DEFAULT) [address] [place] [address] 87477 Cholesterol.total /Cholesterol in HDL [Mass ratio] 3.6 {ratio} Normal 0.0-4.5 [facility] Comment on above: Performed By: #### 2 554117, 6201858, 7276106, 2083102, 5755370, 8941512246, 5431873344 #### [facility] (DEFAULT) [address] [place] [address] VLDL. 16 mg/dL Normal 5-40 [facility] Comment on above: Performed By: #### 2 675109, 6801389, 5159373, 0800599, 6924084, 3896264565, 2918016974 #### [facility] (DEFAULT) [address] [place] [address] Phoson 01-03-2024 Phosphate [Mass/Vol] 2.7 mg/dL Normal 2.5-4.6 [facility] Comment on above: Performed By: #### 2 347156, 4907289, 8945325, 7712427, 6963218, 2600931437, 9724266744 #### [facility] (DEFAULT) [address] [place] [address] Uric Acidon 01-03-2024 Urate [Mass/Vol] 4.6 mg/dL Normal 2.6-8.0 [facility] Comment on above: Performed By: #### 2 782573, 0247558, 9364063, 4491923, 1117379, 6833412019, 1919433122 #### [facility] (DEFAULT) [address] [place] [address] Consent Formson 02-07-2023 Consent Forms [id number] #1.00OTGTIFF Normal [facility] CMP Standardon 02-01-2023 eGFR Non AA >60 Invalid Interpretation Code [facility] Comment on above: Performed By: #### 2 531832, 2664451543, 7213068, 8556457, 8511329906, 6607069, 9155035 #### [facility] (DEFAULT) [address] [place] [address] eGFR AA >60 Invalid Interpretation Code [facility] Comment on above: Performed By: #### 2 506750, 6630198111, 8055983, 2737271, 2988512166, 7347180, 4680590 #### [facility] (DEFAULT) [address] [place] [address] Albumin [Mass/Vol] 4.0 g/dL Normal 3.5-5.0 [facility] Comment on above: Performed By: #### 2 045846, 5281683567, 1518444, 5854998, 8242615145, 2074767, 5720042 #### [facility] (DEFAULT) [address] [place] [address] Albumin/Globulin [Mass ratio] 1.2 {ratio} Low 1.4-2.6 [facility] Comment on above: Performed By: #### 2 973143, 5903380054, 2435008, 3859892, 6424055600, 0995443, 9844201 #### [facility] (DEFAULT) [address] [place] [address] Alk Phos 58 IU/L Normal 32-91 [facility] Comment on above: Performed By: #### 2 431005, 9699252757, 6738318, 4127482, 2745530375, 5990347, 6874928 #### [facility] (DEFAULT) [address] [place] [address] 57122 ALT [Catalytic activity/Vol] 51.0 U/L Normal 14.0-54.0 [facility] Comment on above: Performed By: #### 2 673431, 2721916923, 9842688, 5088097, 2528681081, 6717993, 8393137 #### [facility] (DEFAULT) [address] [place] [address] 25117 Anion gap [Moles/Vol] 9.6 mmol/L Normal 5.0-19.0 [facility] Comment on above: Performed By: #### 2 320146, 4403864227, 1793698, 6050509, 7743741203, 9156193, 8824886 #### [facility] (DEFAULT) [address] [place] [address] 39706 AST [Catalytic activity/Vol] 27 U/L Normal 15-41 [facility] Comment on above: Performed By: #### 2 628518, 3792655341, 4169790, 1571592, 6513357119, 2010106, 9238282 #### [facility] (DEFAULT) [address] [place] [address] 34681 Bili Total 0.5 mg/dL Normal 0.3-1.2 [facility] Comment on above: Performed By: #### 2 036663, 6905667679, 6794631, 7422539, 1430106723, 8773498, 9556596 #### [facility] (DEFAULT) [address] [place] [address] 04470 Calcium [Mass/Vol] 8.6 mg/dL Low 8.9-10.3 [facility] Comment on above: Performed By: #### 2 066577, 6160825070, 1333501, 6117669, 5402155175, 9988182, 5266923 #### [facility] (DEFAULT) [address] [place] [address] 38354 Chloride [Moles/Vol] 102 mmol/L Normal 101-111 [facility] Comment on above: Performed By: #### 2 757594, 1001943511, 3993242, 6228987, 4122523518, 7187267, 0382688 #### [facility] (DEFAULT) [address] [place] [address] 33809 CO2 [Moles/Vol] 28 mmol/L Normal 21-32 [facility] Comment on above: Performed By: #### 2 761090, 2042718725, 1202152, 3940653, 2607153272, 2086902, 1336666 #### [facility] (DEFAULT) [address] [place] [address] 80173 Creatinine [Mass/Vol] 0.57 mg/dL Low 0.60-1.30 [facility] Comment on above: Performed By: #### 2 470067, 2677056677, 8947593, 7344430, 0154178730, 0143786, 6071705 #### [facility] (DEFAULT) [address] [place] [address] 90979 Globulin (S) [Mass/Vol] 3.2 g/dL Normal 1.5-4.3 [facility] Comment on above: Performed By: #### 2 872773, 1162539248, 7640991, 3073317, 2670058506, 3062172, 1252980 #### [facility] (DEFAULT) [address] [place] [address] 07432 Glucose [Mass/Vol] 87.0 mg/dL Normal 74.0-118.0 [facility] Comment on above: Performed By: #### 2 509618, 5415777063, 2078656, 2539560, 9561039661, 5199586, 3833590 #### [facility] (DEFAULT) [address] [place] [address] 49905 Osmolality 271 mOsm/L Invalid Interpretation Code [facility] Comment on above: Performed By: #### 2 644569, 9167894892, 6814470, 0042341, 0183298062, 2323071, 6834422 #### [facility] (DEFAULT) [address] [place] [address] 61691 Potassium [Moles/Vol] 3.6 mmol/L Normal 3.6-5.1 [facility] Comment on above: Performed By: #### 2 181699, 5591515811, 1058892, 8729400, 3218302147, 4197784, 5499578 #### [facility] (DEFAULT) [address] [place] [address] 46443 Protein [Mass/Vol] 7.2 g/dL Normal 6.5-8.1 [facility] Comment on above: Performed By: #### 2 937970, 0094674497, 4557274, 9935514, 8003545220, 3397907, 9315449 #### [facility] (DEFAULT) [address] [place] [address] 21767 Sodium [Moles/Vol] 136.0 mmol/L Normal 136.0-144.0 [facility] Comment on above: Performed By: #### 2 844064, 5469732147, 7279440, 7887121, 6231156094, 2586485, 5620447 #### [facility] (DEFAULT) [address] [place] [address] Urea nitrogen [Mass/Vol] 11 mg/dL Normal 8-26 [facility] Comment on above: Performed By: #### 2 793033, 3862900147, 6482754, 4446712, 4841805955, 2218563, 4857014 #### [facility] (DEFAULT) [address] [place] [address] 44180 Urea nitrogen/Creatini ne [Mass ratio] 19.2 mg/mg High 4.6-16.2 [facility] Comment on above: Performed By: #### 2 719663, 6922448759, 0020746, 6717363, 4405522588, 3850860, 2843221 #### [facility] (DEFAULT) [address] [place] [address] GGTon 02-01-2023 Gamma glutamyl transferase [Catalytic activity/Vol] 39.0 U/L Normal 7.0-50.0 [facility] Comment on above: Performed By: #### 2 649887, 5723332, 9323054, 6415326, 3342563, 3078126818, 3535392828 #### [facility] (DEFAULT) [address] [place] [address] 77147 Iron Levelon 02-01-2023 Iron [Mass/Vol] 75.0 ug/dL Normal 28.0-170.0 [facility] Comment on above: Performed By: #### 2 695569, 7010032, 1257202, 8786395, 4322840, 2348646661, 5534169467 #### [facility] (DEFAULT) [address] [place] [address] 87784 LDHon 02-01-2023 LDH 149.0 IU/L Normal 98.0-192.0 [facility] Comment on above: Performed By: #### 2 661981, 7920863, 4932881, 7003166, 2951248, 3124231069, 8831375029 #### [facility] (DEFAULT) [address] [place] [address] 52903 Lipid Panel Standardon 02-01 Cholesterol [Mass/Vol] 152.0 mg/dL Normal 66.0-200.0 [facility] Comment on above: Performed By: #### 2 892915, 9245597102, 8457924, 3193740, 6644470864, 0901566, 2109575 #### [facility] (DEFAULT) [address] [place] [address] 80448 Cholesterol in HDL [Mass/Vol] 46 mg/dL Normal 40-71 [facility] Comment on above: Performed By: #### 2 353911, 6910331018, 6407301, 3152183, 6653884064, 7386395, 3932369 #### [facility] (DEFAULT) [address] [place] [address] 51767 Cholesterol in LDL [Mass/Vol] 92 mg/dL Normal 1-100 [facility] Comment on above: Performed By: #### 2 540557, 5446241244, 2228282, 5296218, 1631747474, 7369775, 4278974 #### [facility] (DEFAULT) [address] [place] [address] 20885 Cholesterol.total /Cholesterol in HDL [Mass ratio] 3.2 {ratio} Normal 0.0-4.5 [facility] Comment on above: Performed By: #### 2 099199, 2889318908, 6653117, 2570892, 4029625253, 9538123, 5323631 #### [facility] (DEFAULT) [address] [place] [address] 26426 Triglyceride [Mass/Vol] 70.0 mg/dL Normal 0.0-150.0 [facility] Comment on above: Performed By: #### 2 240273, 3087660529, 7893674, 8556692, 2042871213, 7070756, 8958652 #### [facility] (DEFAULT) [address] [place] [address] 70992 VLDL. 14 mg/dL Normal 5-40 [facility] Comment on above: Performed By: #### 2 675362, 5686019609, 8917472, 3455892, 1031960723, 1145627, 7745931 #### [facility] (DEFAULT) [address] [place] [address] Phoson 02-01-2023 Phosphate [Mass/Vol] 3.8 mg/dL Normal 2.5-4.6 [facility] Comment on above: Performed By: #### 2 183061, 7739964, 6449638, 2472729, 8651857, 6934136369, 1890724212 #### [facility] (DEFAULT) [address] [place] [address] Uric Acidon 02-01-2023 Urate [Mass/Vol] 5.0 mg/dL Normal 2.6-8.0 [facility] Comment on above: Performed By: #### 2 458837, 8935227, 2328818, 1368173, 1085636, 5222505846, 5880530160 #### [facility] (DEFAULT) [address] [place] [address] SCREENING MAMMOGRAM W/FUAD, BILATERAL*on 02-14-2022 SCREENING MAMMOGRAM [...] VERY IMPORTANT TO YOUR HEALTH. THE CURRENT [employer] GUIDELINES RECOMMENDS ANNUAL MAMMOGRAPHY BEGINNING AT AGE 40 THIS FACILITY USES A REMINDER SYSTEM TO ENSURE ALL PATIENTS RECEIVE REMINDER NOTIFICATIONS AT THE APPROPRIATE TIME BASED ON THE RECOMMENDATIONS OF THIS EXAM. Report reported and signed by Cedric North on 02/15/2022 0805 Normal [facility] Vital Signs Date Time Vital Sign Value Performing Clinician Facility 10-03-2023 10: Body height 163.83 cm [facility] 10-03-2023 10: Body mass index (BMI) [Ratio] 51.2 kg/m2 [facility] 10-03-2023 10: Body weight 137.43 kg [facility] 10-03-2023 10: Diastolic blood pressure 88 mm[Hg] [facility] 10-03-2023 10:31-0400 Heart rate 75 /min [facility] 10-03-2023 10:31-0400 SaO2% (BldA) [Mass fraction] 99 % [facility] 10-03-2023 10:31-0400 Systolic blood pressure 132 mm[Hg] [facility] 02-13-2023 11:00-0500 Body height 163.83 cm Betty Huffman Other [email or web address] Other 02-13-2023 11:00-0500 Body mass index (BMI) [Ratio] 50.53 kg/m2 Betty Huffman Other [email or web address] Other 02-13-2023 11:00-0500 Body weight 135.63 kg Betty Huffman Other [email or web address] Other 02-13-2023 11:00-0500 Diastolic blood pressure 88 mm[Hg] Betty Huffman Other [email or web address] Other 02-13-2023 11:00-0500 SaO2% (BldA) [Mass fraction] 99 % Betty Huffman Other [email or web address] Other 02-13-2023 11:00-0500 Systolic blood pressure 134 mm[Hg] Betty uHffman Other [facility] Other 02-01-2022 14:30-0400 Body height Betty Huffman Other [email or web address] Other 02-01-2022 14:30-0400 Body mass index (BMI) [Ratio] 51.2 kg/m2 Betty Huffman Other [facility] Other 02-01-2022 14:30-0400 Body weight 137.44 kg Betty Cassidyacher Other [facility] Other 02-01-2022 14:30-0400 Diastolic blood pressure 100 mm[Hg] Betty Lukerbacher Other [facility] Other 02-01-2022 14:30-0400 SaO2% (BldA) [Mass fraction] 98 % Betty Lukerbacher Other [email or web address] Other 02-01-2022 14:30-0400 Systolic blood pressure 142 mm[Hg] Betty Lukerbacher Other [facility] Other 01-26-2022 14:30-0400 Body height Betty Cassidyacher Other [facility] Other 01-26-2022 14:30-0400 Body mass index (BMI) [Ratio] 51.2 kg/m2 Betyt Cassidyacher Other [facility] Other 01-26-2022 14:30-0400 Body weight 137.44 kg Betty Cassidyacher Other [facility] Other 01-26-2022 14:30-0400 Diastolic blood pressure 98 mm[Hg] Betty Lukerbacher Other [facility] Other 01-26-2022 14:30-0400 SaO2% (BldA) [Mass fraction] 96 % Betty Lukedaynaacher Other [facility] Other 01-26-2022 14:30-0400 Systolic blood pressure 164 mm[Hg] Betty Huffman Other [facility] Other 09-23-2021 11:00-0400 Body height Betty Hinesr Other [email or web address] Other 09-23-2021 11:00-0400 Body mass index (BMI) [Ratio] 50.19 kg/m2 Betty Hinesr Other [facility] Other 09-23-2021 11:00-0400 Body weight 134.72 kg Betty Hinesr Other [facility] Other 09-23-2021 11:00-0400 Diastolic blood pressure 86 mm[Hg] Betty Florar Other [facility] Other 09-23-2021 11:00-0400 SaO2% (BldA) [Mass fraction] 97 % Betty Lukedaynaalanajamey Other [email or web address] Other 09-23-2021 11:00-0400 Systolic blood pressure 126 mm[Hg] Betty Florar Other [email or web address] Other 02-03-2021 12:00-0400 Body height Betty Hinesr Other [email or web address] Other 02-03-2021 12:00-0400 Body mass index (BMI) [Ratio] 48.67 kg/m2 Betty Lukedaynaalanar Other [email or web address] Other 02-03-2021 12:00-0400 Body weight 130.64 kg Betty Huffman Other [email or web address] Other 02-03-2021 12:00-0400 Diastolic blood pressure 110 mm[Hg] Betty Huffman Other [email or web address] Other 02-03-2021 12:00-0400 Respiratory rate 18 /min Betty Huffman Other [email or web address] Other 02-03-2021 12:00-0400 SaO2% (BldA) [Mass fraction] 96 % Betty Huffman Other [email or web address] Other 02-03-2021 12:00-0400 Systolic blood pressure 169 mm[Hg] Betty Nathanael Other [email or web address] Other Encounters Encounter Date Encounter Type Care Provider Facility Start: 11-15-2023 End: 11-15-2023 ambulatory Betty Huffman Facility:[facility] Start: 10-03-2023 End: 10-03-2023 ambulatory [facility] Work Phone: Start: 10-03-2023 End: 10-03-2023 Patient encounter procedure [facility]ly [facility] Work Phone: Start: 10-03-2023 End: 10-03-2023 ambulatory NAGA SONIA Not Available Start: 03-29-2023 End: 03-29-2023 ambulatory NAGA SONIA Not Available Start: 02-13-2023 End: 02-13-2023 ambulatory Betty Huffman Other [email or web address] Other Start: 02-13-2023 Encounter for genera l adult medical examination without abnormal findings Betty Huffman [facility] Start: 02-13-2023 Periodic preventive med est patient 40-64yrs Betty Nathanael [facility] Start: 02-01-2023 End: 02-01-2023 ambulatory Betty Huffman Facility:[facility] Start: 02-01-2022 End: 02-01-2022 ambulatory Betty Nathanael Other [email or web address] Other Start: 02-01-2022 Office outpatient vi sit 25 minutes Betty Huffman [facility] Start: 01-26-2022 End: 01-26-2022 ambulatory Betty Nathanael Other [email or web address] Other Start: 01-26-2022 Encounter for genera l adult medical examination without abnormal findings Betty Huffman [facility] Start: 01-26-2022 Periodic preventive med est patient 40-64yrs Betty Huffman [facility] Start: 09-27-2021 End: 09-27-2021 ambulatory Betty Nathanael Other [email or web address] Other Start: 09-27-2021 Telephone encounter Betty Suzy ferguson [facility] Start: 09-23-2021 End: 09-23-2021 ambulatory Betty Huffman Other [email or web address] Other Start: 09-23-2021 Office outpatient vi sit 15 minutes Betty Huffman [facility] Start: 02-03-2021 Encounter for genera l adult medical examination without abnormal findings Betty Huffman [facility] Start: 02-03-2021 Periodic preventive med est patient 40-64yrs Betty Nathanael [facility] Immunizations Immunization Date Immunization Notes Care Provider Brooklynn moore 01-14-2022 influenza, seasonal, injectable Betty Huffman Other [facility] 02-03-2020 influenza, seasonal, injectable Patient Objection Betty Huffman Other [email or web address] Other 10-02-2019 Toradol per 15 mg Betty Huffman Other [email or web address] Other 01-10-2018 influenza, seasonal, injectable Betty Huffman Other [facility] NEGATED: Highlighted row has not occurred! 0 influenza, seasonal, injectable Patient Objection Betty Huffman Other [email or web address] Other Payers Date Payer Category Payer Private Health Insurance [id number] 2022 Unknown [id number] 1980 Unknown [id number] 1980 Unknown [id number] Private Health Insurance [facility] [employer] [facility] [id number] Self-pay Self Pay [id number] Social History Date Type Detail Facility Unknown if ever smoked [email or web address] Other Sex Assigned At Sex Assigned At Bir th [email or web address] Other Start: 10-03-2023 Tobacco smoking status NHIS Never smoked tobacco (finding) [facility] Start: 1980 Sex Assigned At Female F [facility] Evaluation note 02-13-2023 Note Date & [...] also continue to use Excedrin as needed. [employer] paperwork compelted to uses as needed for [...] tx plan. Pt ambulated out by self. [email or web address] Other History general Narrative - Reported 11-08-2022 Note Date & Type Note Facility 11-08-2022 History general N arrative - Reported Type Medical History Hx of depression/anxiety Medical History Migraines Medical History COVID 11/2022 Surgical History Breast reduction 2006 Surgical History Tonsilectomy ? Surgical History Leep procedure 11/02/22 Hospitalization History see above [email or web address] Other Evaluation note 02-01-2022 Note Date & [...] not to take NSAIDs while using steroids. [id number] antipyretics as needed. Warning signs and symptoms [...] understanding and is agreeable to treatment plan. [email or web address] Other Evaluation note 01-26-2022 Note Date & [...] of this and agrees to this plan. [email or web address] Other Evaluation note 09-23-2021 Note Date & [...] understanding and agrees to plan of care. [email or web address] Other Evaluation note 02-03-2021 Note Date & [...] also continue to use Excedrin as needed. [employer] paperwork compelted to uses as needed for [...] elevated. Patient verbalizes understanding and is agreeable. [email or web address] Other Evaluation note Note Date & Type Note Facility Evaluation note No Information [facility] Other Evaluation note Note Date & Type Note Facility Evaluation note Diagnosis Onset Date Sciatica of right side acute [facility] Work Phone: History general Narrative - Reported Note Date & Type Note Facility History general Narrative - Reported Type Medical History Hx of depression/anxiety Medical History Migraines Surgical History Breast reduction 2006 Surgical History Tonsilectomy ? Hospitalization History see above [email or web address] Other Summary Purpose Family History No Family History Records FoundNo Family History Records FoundNo Family History Records Found Advance Directives No Advanced Directives Records Found Advance Directive Response Recorded Date/ Time Advance [...] section and content) DATE CREATED AUTHOR 02/15/2022 [facility] dical Specialist DATE CREATED AUTHOR AUTHOR'S ORGANIZ ATION 10/04/2023 [facility] dical Specialists EPIC DATE CREATED AUTHOR AUTHOR'S ORGANIZ ATION 01/21/2024 [facility] Care Teams (unrecognized sec tion and content) Team Status: Active Member Role Status Dates Betty Huffman APRN [facility] Primary Care Provider Active Team Status: Inactive Member Role Status Dates Betty Huffman APRN [facility] Primary Care Provider, Attending Provider Active Start: [...] BE BASED ON THE PRIMARY CLINICAL RECORDS. [employer] provides no warranty or guarantee of the accuracy or completeness of information in this document.
[2024-01-26 12:10] LABS: Age Gdln ACOG Testing Note (.); HPV Aptima Negative (Negative); IGP, Aptima HPV, rfx 16/18,45 Note (.)
== END 2024-01-22 20:24 | disposition home or self-care (01) ==
LOC: LAB 20:23
PROVIDERS: PCP Nurse Practitioner Family; Visit Provider Obstetrics & Gynecology
DX: Z01.419 Encounter for gynecological examination (general) (routine) without abnormal findings (principal)
CPT/HCPCS: 87624; 88175

== ENCOUNTER 2024-05-28 20:32 | Outpatient (REF) | payer OTHER, SELFPAY ==
--- OUTSIDE RECORDS SUMMARY | 2024-05-28 20:34 | XMS_ITS | CCD ---
Author Organization [facility] Care Team Providers Care Oil Field Operator Name Role Phone Betty Huffman Unavailable [phone] Betty Huffman Primary Care Unavailable Betty Huffman Primary Care Unavailable NAGA KRAFT Attending Unavailable NAGA KRAFT Attending Unavailable NAGA KRAFT Attending Unavailable Betty Huffman NP Primary Care Provider Unavailable HARRISON Huffman Attending Provider Betty Huffman Attending Unavailable Betty Huffman Admitting Unavailable Allergies Allergy Classification Reported Allergen(s) Allergy Type Date of Onset Reaction(s) Facility (1 source) Pollen; Translations: [Pollen] Propensity to adverse reactions (disorder) [facility] Repository (4 sources) Honey bee venom Allergy to substance 3 Rash [facility] (4 sources) Latex Allergy to substance 3 Unknown [facility] (4 sources) strawberry allergenic extract Drug Allergy 3 Unknown [facility] Medications Current Medications Medication Drug Class(es) Dates Sig (Normalized) Sig (Original) acetaminophen 325 mg oral tablet (1 source) take 2 tablets by mouth every twenty-four hours Tylenol 325 MG 2 tablet as needed Orally once a day Active [id number] 200 actuat albuterol 0.09 mg/actuat metered dose [...] Active cyclobenzaprine hydrochloride 10 mg oral tablet (9 sources) Muscle Relaxant Start: 10-03-2023 take 10 [...] (2 sources) Histamine-1 Receptor Antagonist Brittnee Active levonorgestrel 0.855623 mg/hr intrauterine system (10 sources) Progestin, Progestin-containing Intrauterine Device Levonorgestrel (Liletta, 52 MG,) 20.1 MCG/DAY intrauterine device Liletta Active Liletta Active Mirena Active methylPREDNISolone 4 mg oral tablet (2 sources) Corticosteroid Start: 02-01-2022 methylPREDNISo lone 4 MG as directed Orally daily for 6 days Jan, Active Start: 09-28-2020 methylPREDNISo lone 4 MG as directed Orally daily for 6 days Sep, Not-Taking rimegepant 75 mg disintegrating oral tablet (8 sources) Start: 03-23-2023 Rimegepant (Nu rtec Odt) 75 mg tablet,disintegrating Active 75 MG PO Every 48 hours September 28, 2023 12:00am Start: 02-13-2023 Nurtec 75 MG 1 tablet on the tongue and allow to dissolve Orally for 30 days Feb, Active sulfamethoxazole 800 mg / trimethoprim 160 mg oral tablet (2 sources) Dihydrofolate Reductase Inhibitor Antibacterial, Sulfonamide Antimicrobial Start: 01-29-2024 take 1 tablet by mouth twice daily Sulfamethoxazole-Trimethoprim (Bactrim Ds) 800-160 mg tablet Active 1 TAB PO Twice daily 10 January 284 12:00am Completed/Discontinued Medications Medication Drug Class(es) Dates Sig [...] Toradol per 15 mg Sep, 30 mg promethazine hydrochloride 25 mg oral tablet (10 sources) Phenothiazine Start: 09-28-2023 End: 01-29-2024 take 25 mg by mouth every twelve hours Promethazine Discontinued 25 MG PO Every 12 hours September 28, 2023 12:00am January 29, 2024 11:00am Start: 02-03-2021 take 1 tablet by christian th every twelve hours Promethazine HCl 25 MG 1 tablet as needed Orally every 12 hrs for 30 day(s) Jan, Active Start: 01-11-2018 Phenergan 25mg 25mg as directed by mouth bid Jan, Active SUMAtriptan 50 mg oral tablet (9 sources) Serotonin-1b and Serotonin-1d Receptor Agonist Start: 09-28-2023 End: 10-03-2023 Sumatriptan Succinate Discontinued 50 MG PO EVERY 2-4 HOURS September 28, 2023 12:00am October 03, 2023 10:38am SUMAtriptan Succ inate 50 MG TAKE ONE TABLET BY MOUTH NEEDED REPEAT IN 2 HOURS NEEDED DAILY FOR 30 DAYS for 30 day(s) Active Problems Active Problems Problem Classification Problem Date Documented Date Episodic/Chronic Chronic obstructive pulmonary disease and bronchiectasis (1 source) Bronchitis, not specified as acute or chronic Episodic Essential hypertension (13 sources) Essential hypertension; Translations: [Essential (primary) hypertension] Onset: 02-03-2021 Resolved: 02-03-2021 Chronic Headache; including migraine (13 sources) Migraine with aura; Translations: [Migraine with aura, not intractable, without status migrainosus] Onset: 02-03-2021 Resolved: 02-03-2021 Chronic Other complications of (2 sources) Previous operation to cervix affecting ; Translations: [Maternal care for other abnormalities of cervix, unspecified trimester] 10-04-2023 Episodic Other complications of (2 sources) Maternal care for other abnormalities of cervix, unspecified trimester; Translations: [Other congenital or acquired abnormality of cervix, unspecified as to episode of care or not applicable] 01-29-2024 Episodic Other nervous system disorders (6 sources) H/O: migraine; Translations: [Personal history of other diseases of the nervous system and sense organs] Episodic Other screening for suspected conditions (not mental disorders or infectious disease) (2 sources) Patient encounter status; Translations: [Encounter for screening mammogram for malignant neoplasm of breast] 01-22-2024 Episodic Other upper respiratory infections (1 source) Acute maxillary sinusitis, unspecified Episodic Spondylosis; intervertebral disc disorders; other back problems (14 sources) Acute back pain with sciatica; Translations: [Lumbago with sciatica, left side] Episodic Urinary tract infections (5 sources) Urinary tract infectious disease; Translations: [Urinary tract infection, site not specified] Onset: 01-29-2024 01-29-2024 Episodic Past or Other Problems Problem Classification Problem Date Documented Da te Episodic/Chronic Other non-traumatic joint disorders (1 source) Pain in left knee Onset: 09-23-2021 Resolved: 09-23-2021 Episodic Results Test Name Value Interpretation Reference Range Facility Urine Cultureon 01-29-2024 Bacteria identified Cx Nom (U) >100,000 colonies/ml mixed bacterial skin contaminants 2 Days PERFORMED BY: [place] [address] PATHOLOGIST CONFERENCE INTERPRETER LEAENN GRIMM M.D. Normal [facility] Comment on above: Performed By: #### C UU #### [address] IGP,APTIMA HPV,AGE GDLNon AGE GDLN ACOG TESTING Note . [facility] Comment on above: TESTS RESULT FLAG UN ITS REF RANGE LAB Clinician Provided Cytology Information Source.............Cervix;Endocervix No. of containers..01 ThinPrep Vial Age Riddhi GO Becky... 3065 FLAG LEGEND: L-Low Normal,H-High Normal,LL-Alert Low,HH-Alert High <-Panic Low,>-Panic High,A-Abnormal,AA-Critical Abnormal Performed at: 01 =[address] [address] Denise Mendosa MD, HPV APTIMA Negative Negative [facility] Comment on above: This nucleic acid am plification test detects fourteen high- risk HPV types (16,18,31,33,35,39,45,51,52,56,58,59,66,68) without differentiation. Performed at: =[address] [id number] Schedule Maker: Denise Mendosa MD, Phone: [phone] Performed at: [address] [id number] Schedule Maker: Denise Mendosa MD, Phone: [phone] IGP, APTIMA HPV, RFX 16/18,45 Note . [facility] Comment on above: TESTS RESULT FLAG UN ITS REF RANGE LAB DIAGNOSIS: 02 NEGATIVE FOR INTRAEPITHELIAL LESION OR MALIGNANCY. PREDOMINANCE OF COCCOBACILLI CONSISTENT WITH SHIFT IN VAGINAL MOLLY IS PRESENT. Specimen adequacy: 02 Satisfactory for evaluation. No endocervical component is identified. Performed by: 02 Basil Warren, Qa Engineer (ASCP) . 02 Note: Note 02 The Pap smear is a screening test designed to aid in the detection of premalignant and malignant conditions of the uterine cervix. It is not a diagnostic procedure and should not be used as the sole means of detecting cervical cancer. Both false-positive and false-negative reports do occur. Test Methodology: Note 02 This liquid based ThinPrep(R) pap test was screened with the use of an image guided system. HPV Genotype Reflex Note 02 Criteria not met, HPV Genotype not performed. FLAG LEGEND: L-Low Normal,H-High Normal,LL-Alert Low,HH-Alert High <-Panic Low,>-Panic High,A-Abnormal,AA-Critical Abnormal Performed at: [address] [address] Denise Mendosa MD, BRUSH-SPATULA CERVIX ENDOCERVIX [facility] Human papilloma virus 16+18+ 31+33+35+39+45+51+52+56+58+59+66+68 DNA [Presence] in Jinny 01-22-2024 HPV 16+18+31+33+35+39+ 45+51+52+56+58+59+ 66+68 DNA Probe+sig amp Ql (Cvx) Negative Negative [facility] Comment on above: This nucleic acid am plification test detects fourteen high- risk HPV types (16,18,31,33,35,39,45,51,52,56,58,59,66,68)without differentiation.Performed at: =G - Lab[address] [place], [place] [id number] Director: Denise Mendosa MD, Phone: [phone] at: - [facility] [address] [place], [place] [id number] Director: Denise Mendosa MD, Phone: [phone] No Panel Informationon 01-21 HPV High Risk Other Comment Note . [facility] Comment on above: TESTS RESULT FLAG UN ITS REF RANGE LAB DIAG NOSIS: 02 NEGATIVE FOR INTRAEPITHELIAL LESION OR MALIGNANCY. PREDOMINANCE OF COCCOBACILLI CONSISTENT WITH SHIFT IN VAGINAL MOLLY IS PRESENT.Specimen adequacy: 02 Satisfactory for evaluation. No endocervical component is identified.Performed by: 02 Basil Warren, Qa Engineer (ASC). 02Note: Note 02 The Pap smear is a screening test designed to aid in the detection of premalignant and malignant conditions of the uterine cervix. It is not a diagnostic procedure and should not be used as the sole means of detecting cervical cancer. Both false-positive and false-negative reports do occur.Test Methodology: Note 02 This liquid based ThinPrep(R) pap test was screened with the use of an image guided system.HPV Genotype Reflex Note 02 Criteria not met, HPV Genotype not performed. --- FLAG LEGEND: L-Low Normal,H-High Normal,LL-Alert Low,HH-Alert High <-Panic Low,>-Panic High,A-Abnormal,AA-Critical Abnormal -Performed at:02 WB [facility] [place] [address] [place] [address] Denise Mendosa MD, Reference Lab Test Patient Age Note . [facility] Comment on above: TESTS RESULT FLAG UN ITS REF RANGE LAB Clinician Provided Cytology Information Source.............Cervix;Endocervix No. of containers..01 ThinPrep VialAge Abbeyo ACOG Becky... FLAG LEGEND: L-Low Normal,H-High Normal,LL-Alert Low,HH-Alert High <-Panic Low,>-Panic High,A-Abnormal,AA-Critical Abnormal -Performed at:01 =G [facility] [address] [address] Denise Mendosa MD, Consent Formson 01-19-2024 Consent Forms [id number] .00OTGTIFF Normal [facility] CMP Standardon 01-03-2024 eGFR Non AA >60 Invalid Interpretation Code [facility] Comment on above: Performed By: #### 2 955985, 1305482, 8115053, 0335767, 7841763, [id number], [id number] #### [facility] (DEFAULT) [address] [place] [address] eGFR AA >60 Invalid Interpretation Code [facility] Comment on above: Performed By: #### 2 002452, 4491478, 9043810, 0817629, 3155949, [id number], [id number] #### [facility] (DEFAULT) [address] [place] [address] Albumin [Mass/Vol] 4.2 g/dL Normal 3.5-5.0 [facility] Comment on above: Performed By: #### 2 838952, 9090574, 4624315, 9896648, 3956762, [id number], [id number] #### [facility] (DEFAULT) [address] [place] [address] Alk Phos 62 IU/L Normal 32-91 [facility] Comment on above: Performed By: #### 2 640675, 9661059, 6856545, 8840604, 9008811, [id number], 0144663838 #### [facility] (DEFAULT) [address] [place] [address] ALT [Catalytic activity/Vol] 83.0 U/L High 14.0-54.0 [facility] Comment on above: Performed By: #### 2 805828, 1410479, 1522620, 5913200, 4450858, [id number], [id number] #### [facility] (DEFAULT) [address] [place] [address] AST [Catalytic activity/Vol] 37 U/L Normal 15-41 [facility] Comment on above: Performed By: #### 2 139479, 5964992, 9765964, 7046747, 1654474, 2189524333, 2844402462 #### [facility] (DEFAULT) [address] [place] [address] Bili Total 0.6 mg/dL Normal 0.3-1.2 [facility] Comment on above: Performed By: #### 2 097463, 0373624, 3789091, 4835055, 3808778, 5136787021, 9948375507 #### [facility] (DEFAULT) [address] [place] [address] Calcium [Mass/Vol] 8.5 mg/dL Low 8.9-10.3 [facility] Comment on above: Performed By: #### 2 645072, 2424765, 8899180, 1205060, 6027596, 5716491687, 5713926023 #### [facility] (DEFAULT) [address] [place] [address] Chloride [Moles/Vol] 102 mmol/L Normal 101-111 [facility] Comment on above: Performed By: #### 2 248727, 9596991, 2334781, 2531094, 7148473, 8392174054, 7535106366 #### [facility] (DEFAULT) [address] [place] [address] CO2 [Moles/Vol] 28 mmol/L Normal 21-32 [facility] Comment on above: Performed By: #### 2 698805, 5988280, 3062233, 8404701, 7689992, 3486162895, 6649972809 #### [facility] (DEFAULT) [address] [place] [address] Creatinine [Mass/Vol] 0.55 mg/dL Low 0.60-1.30 [facility] Comment on above: Performed By: #### 2 466770, 7623910, 7959492, 7834618, 7744355, 1047444461, 2681209761 #### [facility] (DEFAULT) [address] [place] [address] Glucose [Mass/Vol] 84.0 mg/dL Normal 74.0-118.0 [facility] Comment on above: Performed By: #### 2 002005, 3748247, 9254252, 2985939, 7369764, 1952750347, 4302122848 #### [facility] (DEFAULT) [address] [place] [address] Potassium [Moles/Vol] 3.9 mmol/L Normal 3.6-5.1 [facility] Comment on above: Performed By: #### 2 045896, 5141198, 1000527, 1380903, 1401044, 1130700931, [id number] #### [facility] (DEFAULT) [address] [place] [address] Protein [Mass/Vol] 7.1 g/dL Normal 6.5-8.1 [facility] Comment on above: Performed By: #### 2 320258, 6204590, 9812233, 2931947, 3664453, 0829908584, 3690074102 #### [facility] (DEFAULT) [address] [place] [address] Sodium [Moles/Vol] 137.0 mmol/L Normal 136.0-144.0 [facility] Comment on above: Performed By: #### 2 678901, 0843699, 9575720, 3425320, 5627812, 6490114190, 3209099123 #### [facility] (DEFAULT) [address] [place] [address] Urea nitrogen [Mass/Vol] 11 mg/dL Normal 8-26 [facility] Comment on above: Performed By: #### 2 418119, 5379121, 3453645, 1313940, 0940077, 4122246090, 4829243220 #### [facility] (DEFAULT) [address] [place] [address] Albumin/Globulin [Mass ratio] 1.4 {ratio} Normal 1.4-2.6 [facility] Comment on above: Performed By: #### 2 348188, 0311096, 1096382, 3581361, 0671747, 1287384591, 1604934985 #### [facility] (DEFAULT) [address] [place] [address] Anion gap [Moles/Vol] 10.9 mmol/L Normal 5.0-19.0 [facility] Comment on above: Performed By: #### 2 622870, 5092408, 4617502, 9559218, 8351295, 7956874350, 6451934854 #### [facility] (DEFAULT) [address] [place] [address] Globulin (S) [Mass/Vol] 2.9 g/dL Normal 1.5-4.3 [facility] Comment on above: Performed By: #### 2 871697, 2685746, 2769291, 0290757, 9217460, 7273748540, 2760256769 #### [facility] (DEFAULT) [address] [place] [address] Osmolality 272 mOsm/L Invalid Interpretation Code [facility] Comment on above: Performed By: #### 2 945948, 4399679, 8402744, 7258413, 1351203, 7331719317, 6205767911 #### [facility] (DEFAULT) [address] [place] [address] Urea nitrogen/Creatinin e [Mass ratio] 20.0 mg/mg High 4.6-16.2 [facility] Comment on above: Performed By: #### 2 367477, 3030083, 0027533, 5962946, 8092052, 2955863608, 8571444830 #### [facility] (DEFAULT) [address] [place] [address] GGTon 01-03-2024 Gamma glutamyl transferase [Catalytic activity/Vol] 53.0 U/L High 7.0-50.0 [facility] Comment on above: Performed By: #### 2 927820, 0637021, 2863841, 8884062, 1689279, 1027822231, 5789092278 #### [facility] (DEFAULT) [address] [place] [address] Iron Levelon 01-03-2024 Iron [Mass/Vol] 77.0 ug/dL Normal 28.0-170.0 [facility] Comment on above: Performed By: #### 2 870104, 7957935, 9607615, 2095274, 6948666, 4586891329, 6141227439 #### [facility] (DEFAULT) [address] [place] [address] LDHon 01-03-2024 LDH 174.0 IU/L Normal 98.0-192.0 [facility] Comment on above: Performed By: #### 2 250461, 2798042, 9893968, 2415351, 2754941, 2211379071, 8629105147 #### [facility] (DEFAULT) [address] [place] [address] Lipid Panel Standardon 01-02 Cholesterol [Mass/Vol] 153.0 mg/dL Normal 66.0-200.0 [facility] Comment on above: Performed By: #### 2 488517, 6235330, 6925467, 4018355, 9379755, 6517990301, 9899225488 #### [facility] (DEFAULT) [address] [place] [address]001 Cholesterol in HDL [Mass/Vol] 42 mg/dL Normal 40-71 [facility] Comment on above: Performed By: #### 2 755515, 4601400, 8125447, 0274920, 0100621, 5720277430, 8109558087 #### [facility] (DEFAULT) [address] [place] [address] Triglyceride [Mass/Vol] 78.0 mg/dL Normal 0.0-150.0 [facility] Comment on above: Performed By: #### 2 216498, 0403144, 4272329, 6809543, 9042260, 7119151241, 5019134997 #### [facility] (DEFAULT) [address] [place] [address]80 Cholesterol in LDL [Mass/Vol] 95 mg/dL Normal 1-100 [facility] Comment on above: Performed By: #### 2 648884, 8944262, 7303345, 8128935, 8444316, 8100824402, 7539710809 #### [facility] (DEFAULT) [address] [place] [address] 35788 Cholesterol.total/ Cholesterol in HDL [Mass ratio] 3.6 {ratio} Normal 0.0-4.5 [facility] Comment on above: Performed By: #### 2 847720, 0003162, 7614993, 6644769, 6715763, 6325935753, 4570509904 #### [facility] (DEFAULT) [address] [place] [address] VLDL. 16 mg/dL Normal 5-40 [facility] Comment on above: Performed By: #### 2 544219, 3582264, 6522334, 5445064, 8046858, 9614497751, 5864756538 #### [facility] (DEFAULT) [address] [place] [address] Phoson 01-03-2024 Phosphate [Mass/Vol] 2.7 mg/dL Normal 2.5-4.6 [facility] Comment on above: Performed By: #### 2 174874, 0282452, 8933639, 0046555, 3316925, 8365715646, 6927988937 #### [facility] (DEFAULT) [address] [place] [address] Uric Acidon 01-03-2024 Urate [Mass/Vol] 4.6 mg/dL Normal 2.6-8.0 [facility] Comment on above: Performed By: #### 2 903512, 4340210, 4163002, 1774188, 6843596, 7125515177, 0789570651 #### [facility] (DEFAULT) [address] [place] [address] Consent Formson 02-07-2023 Consent Forms [id number] .[id number] Normal [facility] CMP Standardon 02-01-2023 eGFR Non AA >60 Invalid Interpretation Code [facility] Comment on above: Performed By: #### 2 836935, [id number], 7699439, 2103886, 6219557797, 6435939, 1480262 #### [facility] (DEFAULT) [address] [place] [address] eGFR AA >60 Invalid Interpretation Code [facility] Comment on above: Performed By: #### 2 550588, 6000264174, 8528582, 7330779, 3310520357, 7208319, 4989370 #### [facility] (DEFAULT) [address] [place] [address]18 Albumin [Mass/Vol] 4.0 g/dL Normal 3.5-5.0 [facility] Comment on above: Performed By: #### 2 709758, 7107088064, 8367268, 5190152, 2355112222, 6955902, 5405477 #### [facility] (DEFAULT) [address] [place] [address] Albumin/Globulin [Mass ratio] 1.2 {ratio} Low 1.4-2.6 [facility] Comment on above: Performed By: #### 2 141522, 2991215723, 3038665, 3528297, 5426681351, 9064467, 3972216 #### [facility] (DEFAULT) [address] [place] [address] Alk Phos 58 IU/L Normal 32-91 [facility] Comment on above: Performed By: #### 2 536835, 4166352044, 3004509, 5562017, 0145176972, 1530992, 5761531 #### [facility] (DEFAULT) [address] [place] [address] 21219 ALT [Catalytic activity/Vol] 51.0 U/L Normal 14.0-54.0 [facility] Comment on above: Performed By: #### 2 922128, 5743075170, 5872209, 7887267, 8021857493, 6788594, 2895194 #### [facility] (DEFAULT) [address] [place] [address] Anion gap [Moles/Vol] 9.6 mmol/L Normal 5.0-19.0 [facility] Comment on above: Performed By: #### 2 824489, 7600149934, 8401518, 9079928, 2498786788, 5809498, 1346304 #### [facility] (DEFAULT) [address] [place] [address]165 AST [Catalytic activity/Vol] 27 U/L Normal 15-41 [facility] Comment on above: Performed By: #### 2 457587, 7096805341, 6922159, 4112435, 4046106045, 0727357, 8217280 #### [facility] (DEFAULT) [address] [place] [address] 96614 Bili Total 0.5 mg/dL Normal 0.3-1.2 [facility] Comment on above: Performed By: #### 2 243541, 6133974674, 7831940, 5516475, 8142115282, 6098596, 1268330 #### [facility] (DEFAULT) [address] [place] [address]753 Calcium [Mass/Vol] 8.6 mg/dL Low 8.9-10.3 [facility] Comment on above: Performed By: #### 2 494844, 4485770015, 7415152, 5466179, 6980585281, 6174060, 3695166 #### [facility] (DEFAULT) [address] [place] [address]332 Chloride [Moles/Vol] 102 mmol/L Normal 101-111 [facility] Comment on above: Performed By: #### 2 048640, 3692408499, 6087946, 3097596, 6050102414, 1034308, 5988851 #### [facility] (DEFAULT) [address] [place] [address] 86938 CO2 [Moles/Vol] 28 mmol/L Normal 21-32 [facility] Comment on above: Performed By: #### 2 235848, 6580313243, 2879873, 2248398, 0975831194, 0491326, 8418531 #### [facility] (DEFAULT) [address] [place] [address] 45552 Creatinine [Mass/Vol] 0.57 mg/dL Low 0.60-1.30 [facility] Comment on above: Performed By: #### 2 785975, 6773009022, 6646582, 5449391, [id number], [id number], [id number] #### [facility] (DEFAULT) [address] [place] [address]28 Globulin (S) [Mass/Vol] 3.2 g/dL Normal 1.5-4.3 [facility] Comment on above: Performed By: #### 2 665070, [id number], 0609991, 5033922, [id number], 7333685, 1255244 #### [facility] (DEFAULT) [address] [place] [address] 57021 Glucose [Mass/Vol] 87.0 mg/dL Normal 74.0-118.0 [facility] Comment on above: Performed By: #### 2 036805, [id number], 5385026, 2580726, [id number], 9295936, 7566774 #### [facility] (DEFAULT) [address] [place] [address] 62786 Osmolality 271 mOsm/L Invalid Interpretation Code [facility] Comment on above: Performed By: #### 2 223947, [id number], 3366199, 9810834, [id number], 4824835, 3060958 #### [facility] (DEFAULT) [address] [place] [address] 24720 Potassium [Moles/Vol] 3.6 mmol/L Normal 3.6-5.1 [facility] Comment on above: Performed By: #### 2 591616, [id number], 5651041, 8573903, [id number], 1331965, 2690274 #### [facility] (DEFAULT) [address] [place] [address] 06340 Protein [Mass/Vol] 7.2 g/dL Normal 6.5-8.1 [facility] Comment on above: Performed By: #### 2 257870, [id number], 7539858, 5357146, [id number], 0477552, 7333207 #### [facility] (DEFAULT) [address] [place] [address] 30405 Sodium [Moles/Vol] 136.0 mmol/L Normal 136.0-144.0 [facility] Comment on above: Performed By: #### 2 779332, [id number], 4470921, 4111434, [id number], 9062073, 4991465 #### [facility] (DEFAULT) [address] [place] [address] 83051 Urea nitrogen [Mass/Vol] 11 mg/dL Normal 8-26 [facility] Comment on above: Performed By: #### 2 249418, [id number], 2406166, 2643314, [id number], 5956704, 2838722 #### [facility] (DEFAULT) [address] [place] [address] Urea nitrogen/Creatinin e [Mass ratio] 19.2 mg/mg High 4.6-16.2 [facility] Comment on above: Performed By: #### 2 487269, [id number], 6622142, 3692472, [id number], 2689231, 3498628 #### [facility] (DEFAULT) [address] [place] [address] GGTon 02-01-2023 Gamma glutamyl transferase [Catalytic activity/Vol] 39.0 U/L Normal 7.0-50.0 [facility] Comment on above: Performed By: #### 2 214613, 4457493, 1500772, 3891607, 7808458, [id number], [id number] #### [facility] (DEFAULT) [address] [place] [address] 24112 Iron Levelon 02-01-2023 Iron [Mass/Vol] 75.0 ug/dL Normal 28.0-170.0 [facility] Comment on above: Performed By: #### 2 528877, 9767793, 7050539, 7846652, 2218820, [id number], [id number] #### [facility] (DEFAULT) [address] [place] [address] 59482 LDHon 02-01-2023 LDH 149.0 IU/L Normal 98.0-192.0 [facility] Comment on above: Performed By: #### 2 165686, 1417881, 0886555, 7053617, 8325686, [id number], [id number] #### [facility] (DEFAULT) [address] [place] [address] 65211 Lipid Panel Standardon 02-01 Cholesterol [Mass/Vol] 152.0 mg/dL Normal 66.0-200.0 [facility] Comment on above: Performed By: #### 2 926894, [id number], 0188589, 8492186, 4254893456, 9378124, 0109444 #### [facility] (DEFAULT) [address] [place] [address] 91625 Cholesterol in HDL [Mass/Vol] 46 mg/dL Normal 40-71 [facility] Comment on above: Performed By: #### 2 877622, [id number], 3832826, 3085444, 4013865234, 9395597, 3725471 #### [facility] (DEFAULT) [address] [place] [address] 68838 Cholesterol in LDL [Mass/Vol] 92 mg/dL Normal 1-100 [facility] Comment on above: Performed By: #### 2 743417, [id number], 8324144, 0749381, [id number], 2733177, 2184513 #### [facility] (DEFAULT) [address] [place] [address] 73340 Cholesterol.total/ Cholesterol in HDL [Mass ratio] 3.2 {ratio} Normal 0.0-4.5 [facility] Comment on above: Performed By: #### 2 567378, [id number], 4806468, 5818725, 6328124369, 0299672, 5128583 #### [facility] (DEFAULT) [address] [place] [address] 05230 Triglyceride [Mass/Vol] 70.0 mg/dL Normal 0.0-150.0 [facility] Comment on above: Performed By: #### 2 085664, [id number], 8426814, 5009042, 2435035520, 9740996, 9116106 #### [facility] (DEFAULT) [address] [place] [address] 39400 VLDL. 14 mg/dL Normal 5-40 [facility] Comment on above: Performed By: #### 2 421368, [id number], 3018163, 4653878, 9519690418, 8959232, 7124948 #### [facility] (DEFAULT) [address] [place] [address] 52544 Phoson 02-01-2023 Phosphate [Mass/Vol] 3.8 mg/dL Normal 2.5-4.6 [facility] Comment on above: Performed By: #### 2 208168, 0663956, 4542270, 7711049, 6474201, [id number], [id number] #### [facility] (DEFAULT) [address] [place] [address] 10829 Uric Acidon 02-01-2023 Urate [Mass/Vol] 5.0 mg/dL Normal 2.6-8.0 [facility] Comment on above: Performed By: #### 2 589103, 7687514, 6072083, 0868826, 8562808, [id number], [id number] #### [facility] (DEFAULT) [address] [place] [address] 62125 SCREENING MAMMOGRAM W/FUAD, BILATERAL*on 02-14-2022 SCREENING MAMMOGRAM [...] VERY IMPORTANT TO YOUR HEALTH. THE CURRENT [place] [employer] GUIDELINES RECOMMENDS ANNUAL MAMMOGRAPHY BEGINNING AT AGE 40 THIS FACILITY USES A REMINDER SYSTEM TO ENSURE ALL PATIENTS RECEIVE REMINDER NOTIFICATIONS AT THE APPROPRIATE TIME BASED ON THE RECOMMENDATIONS OF THIS EXAM. Report reported and signed by Cedric North on 02/15/2022 0805 Normal [facility] Specialist Vital Signs Date Time Vital Sign Value Performing Clinician Facility 01-29-2024 10:56-0400 Body height 163.83 cm [facility] 01-29-2024 10:56-0400 Body mass index (BMI) [Ratio] 51.7 kg/m2 [facility] 01-29-2024 10:56-0400 Body temperature 98.9 [degF] [facility] 01-29-2024 10:56-0400 Body weight 139.02 kg [facility] 01-29-2024 10:56-0400 Diastolic blood pressure 88 mm[Hg] [facility] 01-29-2024 10:56-0400 Heart rate 88 /min [facility] 01-29-2024 10:56-0400 SaO2% (BldA) [Mass fraction] 98 % [facility] 01-29-2024 10:56-0400 Systolic blood pressure 136 mm[Hg] [facility] 01-22-2024 10:31-0400 Body mass index (BMI) [Ratio] 52.35 kg/m2 Naga Swapnil DO Work Phone: [facility] 01-22-2024 10:31-0400 Body weight 138.35 kg Naga Swapnil DO Work Phone: [facility] 01-22-2024 10:31-0400 Diastolic blood pressure 78 mm[Hg] Naga Swapnil DO Work Phone: [facility] 01-22-2024 10:31-0400 Systolic blood pressure 130 mm[Hg] Naga Swapnil DO Work Phone: [facility] 10-03-2023 10:31-0400 Body height 163.83 cm [facility] 10-03-2023 10:31-0400 Body mass index (BMI) [Ratio] 51.2 kg/m2 [facility] 10-03-2023 10:31-0400 Body weight 137.43 kg [facility] 10-03-2023 10:31-0400 Diastolic blood pressure 88 mm[Hg] [facility] 10-03-2023 10:31-0400 Heart rate 75 /min [facility] 10-03-2023 10:31-0400 SaO2% (BldA) [Mass fraction] 99 % [facility] 10-03-2023 10:31-0400 Systolic blood pressure 132 mm[Hg] [facility] 02-13-2023 11:00-0500 Body height 163.83 cm Betty Huffman Other [facility] Other 02-13-2023 11:00-0500 Body mass index (BMI) [Ratio] 50.53 kg/m2 Betty Hinesr Other [facility] Other 02-13-2023 11:00-0500 Body weight 135.63 kg Betty Cassidyacher Other [facility] Other 02-13-2023 11:00-0500 Diastolic blood pressure 88 mm[Hg] Betty Cassidyacher Other [facility] Other 02-13-2023 11:00-0500 SaO2% (BldA) [Mass fraction] 99 % Betty Cassidyacher Other [facility] Other 02-13-2023 11:00-0500 Systolic blood pressure 134 mm[Hg] Betty Cassidyacher Other [facility] Other 02-01-2022 14:30-0400 Body height Betty Hinesr Other [facility] Other 02-01-2022 14:30-0400 Body mass index (BMI) [Ratio] 51.2 kg/m2 Betty Khanhacher Other [facility] Other 02-01-2022 14:30-0400 Body weight 137.44 kg Betty Cassidyacher Other [facility] Other 02-01-2022 14:30-0400 Diastolic blood pressure 100 mm[Hg] Betty Cassidyacher Other [facility] Other 02-01-2022 14:30-0400 SaO2% (BldA) [Mass fraction] 98 % Betty Lukedaynaalanar Other [facility] Other 02-01-2022 14:30-0400 Systolic blood pressure 142 mm[Hg] Betty Cassidyacher Other [facility] Other 01-26-2022 14:30-0400 Body height Betty Lukedaynaalanar Other [facility] Other 01-26-2022 14:30-0400 Body mass index (BMI) [Ratio] 51.2 kg/m2 Betty Lukedaynaacher Other [facility] Other 01-26-2022 14:30-0400 Body weight 137.44 kg Betty Lukedaynaacher Other [facility] Other 01-26-2022 14:30-0400 Diastolic blood pressure 98 mm[Hg] Betty Cassidyacher Other [facility] Other 01-26-2022 14:30-0400 SaO2% (BldA) [Mass fraction] 96 % Betty Khanhacher Other [facility] Other 01-26-2022 14:30-0400 Systolic blood pressure 164 mm[Hg] Betty Lukedaynaacher Other [facility] Other 09-23-2021 11:00-0400 Body height Betty Cassidyacher Other [facility] Other 09-23-2021 11:00-0400 Body mass index (BMI) [Ratio] 50.19 kg/m2 Betty Huffman Other [facility] Other 09-23-2021 11:00-0400 Body weight 134.72 kg Betty Hinesr Other [facility] Other 09-23-2021 11:00-0400 Diastolic blood pressure 86 mm[Hg] Betty Hinesr Other [facility] Other 09-23-2021 11:00-0400 SaO2% (BldA) [Mass fraction] 97 % Betty Huffman Other [facility] Other 09-23-2021 11:00-0400 Systolic blood pressure 126 mm[Hg] Betty Hinesr Other [facility] Other 02-03-2021 12:00-0400 Body height Betty Huffman Other [facility] Other 02-03-2021 12:00-0400 Body mass index (BMI) [Ratio] 48.67 kg/m2 Betty Huffman Other [facility] Other 02-03-2021 12:00-0400 Body weight 130.64 kg Betty Hinesr Other [facility] Other 02-03-2021 12:00-0400 Diastolic blood pressure 110 mm[Hg] Betty Hinesr Other [facility] Other 02-03-2021 12:00-0400 Respiratory rate 18 /min Betty Khanhalanar Other [facility] Other 02-03-2021 12:00-0400 SaO2% (BldA) [Mass fraction] 96 % Betty Huffman Other [facility] Other 02-03-2021 12:00-0400 Systolic blood pressure 169 mm[Hg] Betty Huffman Other [facility] Other Encounters Encounter Date Encounter Type Care Provider Facility Start: 01-29-2024 End: 01-29-2024 Departed Referred SUPPLY CHAIN ANALYST Betty Huffman Work Phone: [facility] [place] Work Phone: Start: 01-29-2024 Patient encounter status [facility] Start: 01-29-2024 End: 01-29-2024 ambulatory Betty Huffman [facility] Work Phone: Start: 01-29-2024 End: 01-29-2024 Encounter for general adult medical examination without abnormal findings [facility] Start: 01-29-2024 End: 01-29-2024 Patient encounter procedure [facility] Work Phone: Start: 01-22-2024 End: 01-22-2024 Bamboo flowsheet Naga Swapnil DO Work Phone: [facility] Start: 01-22-2024 End: 01-26-2024 Bamboo flowsheet Ngaa Swapnil DO Work Phone: [facility] Start: 01-22-2024 End: 01-26-2024 Clinisync Result Encounter Naga Swapnil DO Work Phone: [facility] Unsolicited Start: 01-22-2024 Non-patient / Non-visit [facility] [employer] Work Phone: Start: 01-22-2024 End: 01-22-2024 Patient encounter procedure Naga Swapnil DO Work Phone: [facility] Work Phone: Start: 01-22-2024 End: 01-22-2024 Periodic preventive med est patient 40-64yrs Naga Swapnil DO Work Phone: [facility] Comment on above: Well woman exam with routine gynecological exam; Breast cancer screening by mammogram Start: 01-22-2024 End: 01-22-2024 ambulatory NAGA SWAPNIL Not Available Start: 11-15-2023 End: 11-15-2023 ambulatory Betty Huffman Facility:[facility] Start: 10-03-2023 End: 10-03-2023 ambulatory [facility] Work Phone: Start: 10-03-2023 End: 10-03-2023 Patient encounter procedure [facility] Work Phone: Start: 10-03-2023 End: 10-03-2023 ambulatory NAGA SWAPNIL Not Available Start: 03-29-2023 End: 03-29-2023 ambulatory NAGA SWAPNIL Not Available Start: 02-13-2023 End: 02-13-2023 ambulatory Betty Huffman Other [facility] Other Start: 02-13-2023 Encounter for genera l adult medical examination without abnormal findings Betty Huffman [facility] Start: 02-13-2023 Periodic preventive med est patient 40-64yrs Betty Huffman [facility] Start: 02-01-2023 End: 02-01-2023 ambulatory Betty Huffman Facility:[facility] Start: 02-01-2022 End: 02-01-2022 ambulatory Betty Huffman Other [facility] Other Start: 02-01-2022 Office outpatient vi sit 25 minutes Betty Huffman [facility] Start: 01-26-2022 End: 01-26-2022 ambulatory Betty Cassidyacher Other [employer] [facility] [employer] Other Start: 01-26-2022 Encounter for genera l adult medical examination without abnormal findings Betty Nathanael [facility] Start: 01-26-2022 Periodic preventive med est patient 40-64yrs Betty Nathanael [facility] Start: 09-27-2021 End: 09-27-2021 ambulatory Betty Nathanael Other [employer] [facility] [employer] Other Start: 09-27-2021 Telephone encounter Betty Lukedede ferguson [facility] Start: 09-23-2021 End: 09-23-2021 ambulatory Betty Nathanael Other [employer] [facility] [employer] Other Start: 09-23-2021 Office outpatient vi sit 15 minutes Betty Huffman [facility] Start: 02-03-2021 Encounter for genera l adult medical examination without abnormal findings Betty Nathanael [facility] Start: 02-03-2021 Periodic preventive med est patient 40-64yrs Betty Lukedee [facility] Procedures Date Procedure Procedure Detail Performing Clinician Start: 01-22-2024 IGP,APTIMA HPV,AGE GDLN Naga Kraft DO Work Phone: Plan of Treatment Date Care Activity Detail Author Start: 05-27-2024 End: 05-27-2024 Patient encounter procedure 05/27/2024 11:20 AM EST Procedure Visit [facility] [address] [facility] [place] [address] Naga Kraft DO [address] [place] [address] [facility] Start: 01-29-2024 Bacteria identified in Urine by Culture Urine Culture [facility] Start: 01-29-2024 Urine culture [facility] Start: 01-22-2024 End: 03-23-2025 MG Breast - bilateral Screening Bilateral screening mammogram Imaging Routine Breast cancer screening by mammogram Expected: 01/22/2024 (Approximate), Expires: 03/23/2025 [facility] Work Phone: Comment on above: Expected: 01/22/2024 (Approximate), Expires: 03/23/2025 Start: 01-22-2024 End: 01-22-2024 Patient encounter procedure 01/22/2024 10:20 AM EDT Office Visit [facility] [address] [place] [address] Naga Kraft, DO [address] [place] [address] Arrived [facility] Comment on above: Arrived THIN PREP TIS PAP AN D HR HPV DNA THIN PREP TIS PAP AND HR HPV DNA Pathology and Cytology Routine Well woman exam with routine gynecological exam Ordered: 01/22/2024 [facility] Comment on above: Ordered: 01/22/2024 Immunizations Immunization Date Immunization Notes Care Provider Fa cility 01-14-2022 influenza, seasonal, injectable Betty Huffman Other [facility] 02-03-2020 influenza, seasonal, injectable Patient Objection Betty Huffman Other [facility] Other 10-02-2019 Toradol per 15 mg Betty Huffman Other [facility] Other 01-10-2018 influenza, seasonal, injectable Betty Huffman Other [facility] NEGATED: Highlighted row has not occurred! 0 influenza, seasonal, injectable Patient Objection Betty Huffman Other [facility] Other Payers Date Payer Category Payer Self-pay [id number] 2023 Private Health Insurance [employer] [id number] 2023 Unknown [id number] 2022 Private Health Insurance [id number] 2022 Unknown [id number] 1980 Unknown [id number] 1980 Unknown [id number] 1980 Unknown [id number] Private Health Insurance [employer] Claims [id number] Unknown Regular Insurance [id number] 100 [id number] Unknown [id number] Social History Date Type Detail Facility Unknown if ever smoked [facility] Other Start: 10-03-2023 Sex Assigned At [employer] [facility] [employer] Other Start: 10-03-2022 End: 10-03-2023 Tobacco smoking status NHIS Never smoked tobacco (finding) [facility] Start: 1980 Sex Assigned At Female [facility] Start: 10-03-2023 End: 01-22-2024 Alcoholic beverage intake Lifetime non-drinker (finding) [facility] Start: 10-03-2023 History of Social function [facility] Start: 10-03-2022 Alcohol Comment Caffeine: 1-2 cups/day [facility] Start: 10-03-2022 Gender identity Identifies as female gender (finding) [facility] Start: 10-03-2022 Sexual orientation Heterosexual (finding) [facility] Start: 01-29-2024 Tobacco smoking status NHIS Smoker (finding) [facility] Clinical Notes 02-03-2021 to 01-22-2024 Any Miranda, AUTO BODY BUILDER APPRENTICE - 01/22/2024 10:20 AM EDT Note Date & Type Note Facility 01-22-2024 History of Presen t illness Narrative Reason for Appointment: Patient ID: Vanessa Roche is a 43 y.o. female who presents for Well Women Visit Patient presents today for Annual Exam. and Consult appointment. MEDICATIONS Current Outpatient Medications Medication Instructions Levonorgestrel (Liletta, 52 MG,) 20.1 MCG/DAY intrauterine device Liletta Nurtec [address] TABLET UNDER THE TONGUE AND ALLOW TO DISSOLVE ORALLY ALLERGIES Allergies Allergen Reactions Latex Unknown [place] (Diagnostic) Unknown Bee Venom Rash PROBLEMS Active Ambulatory Problems Diagnosis Date Noted No Active Ambulatory Problems Resolved Ambulatory Problems Diagnosis Date Noted No Resolved Ambulatory Problems Past Medical History: Diagnosis Date Anxiety Depression ([facility]) HISTORY PAST MEDICAL HISTORY SOCIAL HISTORY Past Medical History: Diagnosis Date Anxiety Depression ([facility]) Social History Tobacco Use Smoking status: Never Smokeless tobacco: Not on file Substance Use Topics Alcohol use: Never Comment: Caffeine: 1-2 cups/day Drug use: Not on file FAMILY HISTORY Family History Problem Relation Name Age of Onset Breast cancer Other maternal aunt Cervical cancer Other maternal aunt SURGICAL HISTORY Past Surgical History: Procedure Laterality Date CERVICAL BIOPSY W/ LOOP ELECTRODE EXCISION 11/02/2022 [place] BREAST REDUCTION 2007 TONSILLECTOMY 2013 REVIEW OF SYSTEMS Review of Systems: Review of Systems All other systems reviewed and are negative. OBJECTIVE Objective: Physical Exam Constitutional: Appearance: Normal appearance. She is well-developed. Genitourinary: Vulva normal. Cardiovascular: Rate and Rhythm: Normal rate and regular rhythm. Pulmonary: Effort: Pulmonary effort is normal. Breath sounds: Normal breath sounds. Abdominal: General: Bowel sounds are normal. There is no distension. Palpations: Abdomen is soft. Tenderness: There is no abdominal tenderness. There is no guarding or rebound. Musculoskeletal: General: No swelling. Normal range of motion. Right lower leg: No edema. Left lower leg: No edema. Neurological: Mental Status: She is alert and oriented to person, place, and time. Skin: General: Skin is warm and dry. Psychiatric: Mood and Affect: Mood normal. Behavior: Behavior normal. Vitals and nursing note reviewed. Exam conducted with a coupon manifest clerk present. Vitals: Estimated body mass index is 52.35 kg/m as calculated from the following: Height as of 11/21/22: 5' 4 . Weight as of this encounter: 305 lb. BP: 130/78 No LMP recorded. Patient has had an implant. ASSESSMENT & PLAN ICD-10-CM 1. Well woman exam with routine gynecological exam Z01.419 THIN PREP TIS PAP AND HR HPV DNA 2. Breast cancer screening by mammogram Z12.31 Bilateral screening mammogram Bilateral screening mammogram Annual: Patient presents today for an annual exam. Patient states she is doing well and has complaints of PMS. Patient currently has IUD and will continue to monitor symptoms and if they become worse then patient will reach out to office for other options (possibly surgical) Pap was obtained without difficulty and patient given mammogram order to have scheduled/obtained. Orders Placed This Encounter Procedures Bilateral screening mammogram Follow Up: Patient is to return in 4 months for Repeat PAP for annual unless needed otherwise. Documented by Any Miranda LPN on behalf of: Naga Kraft DO documented in this encounter [facility] 02-13-2023 Evaluation note Encounter Date Diagnosis Assessment [...] tx plan. Pt ambulated out by self. [facility] Other 08-01-2023 History general Narrative - Reported* Type Description Date Medical History Hx of depression/anxiety Medical History Migraines Medical History COVID 11/2022 Surgical History Breast reduction 2006 Surgical History Tonsilectomy ? Surgical History Leep procedure 11/02/22 Hospitalization History see above [facility] Other 10-25-2022 Evaluation note* Encounter Date Diagnosis Assessment Notes Treatment Notes Treatment Clinical Notes Jan, Bronchitis (ICD-10 - J40) Pt [...] not to take NSAIDs while using steroids. Gnop-prf-uqejtfy antipyretics as needed. Warning signs and symptoms [...] per day to help maintain normal GI molly Supportive care as directed, push fluids and rest, Tylenol/Motrin as directed for aches/fever, warm moist compress over sinuses several times a day, cool mist humidifier, nasal saline spray as directed. Symptoms should improve in the next 3 days, if symptoms persist follow up. Immediate eval for warning s/sx as discussed. Patient verbalizes understanding and is agreeable to treatment plan. [facility] Other 10-19-2022 Evaluation note* Encounter Date Diagnosis Assessment Notes Treatment Notes Treatment Clinical Notes Jan, Wellness examination (ICD-10 - Z00.00) [...] of this and agrees to this plan. [facility] Other 06-16-2022 Evaluation note* Encounter Date Diagnosis Assessment Notes Treatment Notes Treatment Clinical Notes Sep, Acute pain of left knee [...] understanding and agrees to plan of care. [facility] Other 10-27-2021 Evaluation note* Encounter Date Diagnosis Assessment Notes Treatment Notes Treatment Clinical Notes Jan, Migraine with aura and without [...] elevated. Patient verbalizes understanding and is agreeable. [place] [facility] Other Evaluation noteNo [facility]Nort [facility] Other Evaluation note* Diagnosis Onset Date Resolution Status Sciatica of right side acute [facility] Work Phone: Evaluation note* Diagnosis Well woman exam with routine gynecological exam Routine gynecological examination Breast cancer screening by mammogram documented in this encounter [facility] Diagnosis Onset Date Resolution Status Essential hypertension acute Hx LEEP (loop electrosurgica l excision procedure), cervix, acute Migraine with aura and witho ut status migrainosus, not intractable acute Sciatica of right side acute UTI (urinary tract infection) acute Wellness examination acute [facility] Work Phone: History general Narrative - Reported* Type Description Date Medical History Hx of depression/anxiety Medical History Migraines Surgical History Breast reduction 2006 Surgical History Tonsilectomy ? Hospitalization History see above [employer] Other Summary Purpose Family History No Family History Records FoundNo Family History Records FoundNo Family History Records FoundNo Family History Records Found Advance Directives No Advanced Directives Records Found Advance Directive Response Recorded Date/ Time Advance Directives No January 24, 2018 1:10pm Chief Complaint and Reason for Visit Chief Complaint fmla, talk about med ication Reason for Visit Sciatica of right si de Chief Complaint annual wellness Reason for Visit Essential hypertensi on Hx LEEP (loop electrosurgical excision procedure), cervix, Migraine with aura and without status migrainosus, not intractable Sciatica of right side UTI (urinary tract infection) Wellness examination Additional Source Comments REASON FOR VISIT (unrecogniz ed section and content) Reason Comments Well Women Visit INFORMATION SOURCE (unrecogn ized section and content) DATE CREATED AUTHOR 02/15/2022 [facility] Specialist DATE CREATED AUTHOR AUTHOR'S ORGANIZ ATION 01/21/2024 [facility] DATE CREATED AUTHOR AUTHOR'S ORGANIZ ATION 01/23/2024 [facility] EPIC DATE CREATED AUTHOR AUTHOR'S ORGANIZ ATION 02/07/2024 [facility] Care Teams (unrecognized sec tion and content) Team Status: Active Member Role Status Dates Betty Huffman APRN [employer] Primary Care Provider Active Team Status: Inactive Member Role Status Dates Betty Huffman APRN [employer] Primary Care Provider, Attending Provider Active Start: October 03, 2023 End: October 03, 2023 [employer] Relationship Specialty Start Date End Date Betty Huffman NP [address] [place] [address] PCP - General Family Medicine 10/04/22 [employer] Relationship Specialty Start Date End Date Betty Huffman NP [address] [place] [address] PCP - General Family Medicine 10/04/22 Team Status: Active Member Role Status Dates Betty Huffman APRN [employer] Primary Care Provider Active Start: January Naga Kraft DO Attending Provider Active Start : January 22, 2024 Team Status: Inactive Member Role Status Dates Betty Huffman APRN [employer] Primary Care Provider, Attending Provider Active Start: January 29, 2024 End: January 29, 2024 Team Status: Inactive Member Role Status Dates Betty Huffman APRN [employer] Attending Provider Act milo Start: January 29, 2024 End: January 29, 2024 Goals (unrecognized section and content) Goals may [...] BE BASED ON THE PRIMARY CLINICAL RECORDS. [employer] provides no warranty or guarantee of the accuracy or completeness of information in this document.
[2024-05-31 15:08] LABS: HPV Aptima Negative (Negative); Pap IG (Image Guided) Note (.)
== END 2024-05-28 20:33 | disposition home or self-care (01) ==
LOC: LAB 20:32
PROVIDERS: PCP Nurse Practitioner Family; Visit Provider Obstetrics & Gynecology
DX: Z01.42 Encounter for cervical smear to confirm findings of recent normal smear following initial abnormal smear (principal)
CPT/HCPCS: 87624; 88175